=== PATIENT | male | born 1950 | race Caucasian/White ===

== ENCOUNTER 2017-10-02 14:14 | Inpatient (IN) | payer MEDICARE ==
[~2017-10-02] VITALS: Ht 167.6 cm; Wt 103.9 kg
--- NOTE | ~2017-10-02 | EC ---
PATIENT:RIK TREVINO DATE OF SERVICE: 10/03/17 SEX: M MEDICAL RECORD: [id number] DATE OF : 46 LOCATION:D.M2 D.212 AGE OF PATIENT: 67 ADMISSION DATE: 10/03/17 REFERRING PHYSICIAN: INTERPRETING PHYSICIAN: COLEEN RENTERIA MD ECHOCARDIOGRAM REPORT ECHO CHARGES 4 ECHO COMPLETE CLINICAL DIAGNOSIS: CP ECHOCARDIOGRAPHIC MEASUREMENTS (adult normal given) AC root (d.<3.7cm) 3.1 cm LV Septum d (<1.2 cm> 1.5 cm Valve Excursion 2.0 cm LV Septum (systole) 1.7 cm Left Atria (s.<4.0cm> 3.8 cm LVPW d(<1.2cm) 1.3 cm RV (d.<2.3cm) 2.3 cm LVPW (sytole) 1.9 cm LV diastole(<5.6CM) 5.1 cm MV E-F(>70mm/sec) cm LV systole 3.3 cm LVOT Diameter 2.0 cm MV exc.(>10mm) cm Est.ejection fraction (50-75%) % Pericardial Effusion N DOPPLER: LVIT cm/sec A 90.0 cm/sec E 136 cm/sec LA cm/sec RVSP 24.0 mmHg LVOT 121 cm/sec AOP1/2T m/s Asc. Ao 178 cm/sec RVOT 97.0 cm/sec RA cm/sec PA 117 cm/sec AV Gradient Peak 13.0 mmHg AV Mean 7.2 mmHg AV Area 2.2 cm MV Gradient Peak 7.5 mmHg MV Mean 3.1 mmHg MV Area cm COMMENTS: Metal Bumper: Jeff [place] Crusher Loader Operator: 4 Dr. Renteria TAPE# PACS DATE OF SERVICE: 10/03/2017 PROCEDURE: Transthoracic echocardiogram. FINDINGS: 1. The left ventricle is difficult to visualize, but appears to have evidence of mild left ventricular hypertrophy with inflow characteristics that are normal. Ejection fraction of 55% to 60% with no obvious regional wall motion abnormalities. 2. The left atrium is normal size, normal function. ECHOCARDIOGRAM REPORT [id number] RIK TREVINO 3. The aortic valve is grossly normal. 4. The tricuspid valve is grossly normal with normal RVSP. 5. The mitral valve is structurally normal with no obvious regurgitation. 6. The pulmonic valve is not well visualized, appears to be normal. 7. The right atrium and right ventricle are structurally and functionally normal. CONCLUSIONS: The patient has evidence of mild left ventricular hypertrophy, but otherwise normal echocardiogram. TRANSINT:[id number] Voice Confirmation ID: [id number] DOCUMENT ID: [id number] 10/07/2017 Edited to correct date of service, dm. COLEEN RENTERIA MD at 1251 CC: [id number] DICTATION DATE: 10/04/17 0935 QA TEST LEAD: 10/04/17 1305 ADM IN [facility] [address] [place] [address]
--- NOTE | ~2017-10-02 | HEMODYNAMI ---
PATIENT:RIK TREVINO MEDICAL RECORD: [id number] : 46 LOCATION:[address] ADMISSION DATE: 10/02/17 Generatedon:10/03/201710:09 Patient name: RIK TREVINO Patient #: [id number] SSN: : 1950 Date of study: 10/03/2017 Page: Of Hemodynamic Procedure Report Patient Data Patient Demographics Procedure consent was obtained First Name: RIK Gender: Male Last Name: BELINDA : 1950 [facility] Initial: REECE Age: 67 year(s) Patient #: [id number] Race: Unknown Additional ID: [id number] Contact details Address: [address] [place] [address] State: [place] City: [facility] Zip code: [address] Admission Admission Data Admission Date: 10/02/2017 Admission Time: 18:40 Room #: 212 Procedure Procedure Types Cath Procedure Diagnostic Procedure [facility] w/Coronaries Procedure Description Procedure Date Procedure Date: 10/03/2017 Procedure Start Time: 9:38 Procedure Staff Name Function Kanwal Mariam RT Monitor John Reid RN Nurse Alexis Garrett RT Scrub Julián Renteria MD Performing Physician Anna Hernandez RN Nurse Hemodynamics Rest Pre Cath Intra NCS Post Cath Procedure Log Time Note 9:50:24 John Reid RN sent for patient. Start room use. 9:50:25 Time tracking: Call back 9:50:36 Plan of Care:Hemodynamics will remain stable., Cardiac rhythm will remain stable., Comfort level will be maintained., Respiratory function will remain adequate., Patient/ family verbilizes understanding of procedure., Procedure tolerated without complication., Recovers from procedure without complications.. 9:52:09 Use device set Femoral Dx 9:52:11 Bag Decanter (2002) opened to sterile field. 9:52:11 ACIST Syringe (07138) opened to sterile field. 9:52:12 Medline Cath Pack ([id number]) opened to sterile field. 9:52:13 SHEATH 5FR [place] (WJU163) opened to sterile field. 9:52:14 ACIST Hand Control (27492) opened to sterile field. 9:52:15 DIAGNOSTIC Multipack 5Fr catheter set (PM2127) opened to sterile field. 9:52:15 ACIST Manifold (77869) opened to sterile field. 9:52:16 Tegaderm 4 x 4 (1626W) opened to sterile field. 9:52:19 MICROPUNCTURE 4FR [place] (O75450) opened to sterile field. 10:01:37 Warm blankets applied, and eduard hugger turned on for patient comfort. 10:01:37 Patient received from PCU to CCL 1 Alert and oriented. Tansferred to table in Supine position. 10:01:38 Correct patient and procedure confirmed by team. 10:01:39 Signed procedure consent form obtained from patient. 10:01:40 ECG and BP/O2 sat monitors applied to patient. 10:01:41 Full Disclosure recording started 10:04:02 PATIENT ARRIVED TO SENIOR CYTOGENETIC TECHNOLOGIST WITH GASH ON HIS HEAD. SAID HE FELL IN SHOWER THIS AM. HE SAYS HE TOLD HIS NURSE. JOHN RN NOTIFIED ESTHER RN ON THE FLOOR. JOHN RN NOTIFIED DR. RENTERIA. PROCEDURE ON HOLD UNTIL GET CT OF HEAD. 10:08:18 ANNA MORENO CLEANED WOUND. 10:08:32 Patient transfered to PCU with Bed. 10:09:12 Full Disclosure recording stopped Device Usage Item Name Manufacture Quantity Catalog Hospital Part Current Minimal Lot# / Number Charge Number Stock Stock Serial# Code ACIST Syringe Acist 1 71696 851640 619848 080860 20 (51782) Medical Systems Inc Bag Decanter Microtek 1 2001S 175163 09731 134437 5 (2001S) Medical Inc. Medline Cath Cardinal 1 [id number] 738173 00394 091030 5 Pack Health ([id number]) SHEATH 5FR Terumo 1 NTK209 738449 839778 411832 40 [place] (LGW533) ACIST Hand Acist 1 88180 492983 119915 896399 5 Control Medical (48551) Systems Inc ACIST Acist 1 30955 767543 890962 446623 5 Manifold Medical (86138) Systems Inc DIAGNOSTIC Cardinal 1 XY4693 526804 25867 744787 30 Multipack 5Fr Health catheter set (MF8682) Tegaderm 4 x 3M 1 1626W 818249 970874 945058 5 4 (1626W) MICROPUNCTURE [facility] 1 [id number] 950505 635019 970276 5 4FR [place] (Z13208) Signature Audit [place] Stage Time Signature Unsigned Intra-Procedure 10/03/2017 Kanwal 10:09:57 AM Counts RT(R) Signatures Monitor : Kanwal Signature : Counts RT Date : Time : [address] [place] [address]
--- NOTE | ~2017-10-02 | HEMODYNAMI ---
PATIENT:RIK TREVINO MEDICAL RECORD: [id number] : 46 [facility] [id number] ADMISSION DATE: 10/03/17 Generatedon:10/09/20178:59 Patient name: RIK TREVINO Patient #: [id number] SSN: : 1950 Date of study: 10/09/2017 Page: Of Hemodynamic Procedure Report Patient Data Patient Demographics Procedure consent was obtained First Name: RIK Gender: Male Last Name: BELINDA : 1950 [facility] Initial: REECE Age: 67 year(s) Patient #: [id number] Race: Unknown Additional ID: [id number] Contact details Address: [address] [place] [address] State: [place] City: [facility] Zip code: [address] Past Medical History Allergies: No known allergies Admission Admission Data Admission Date: 10/03/2017 Admission Time: 15:20 Room #: D.2121 Height (in.): 65.75 BSA: 2.11 (m2) Height (cm.): 167 BMI: 36.93 (kg/m2) Weight (lbs.): 227.08 Weight (kg.): 103 Lab Results Lab Result Date: 10/03/2017 Lab Result Time: 9:30 Biochemistry Name Units Result Min Max BUN mg/dl 21 --(----)-* 7 18 Creatinine mg/dl 0.9 --(-*--)-- 0.6 1.3 CBC Name Units Result Min Max Hematocrit % 43.4 --(*---)-- 42 54 Hemoglobin g/dl 13.4 -*(----)-- 13.5 17.5 Procedure Procedure Types Cath Procedure PCI Procedure Coronary Stent Coronary Stent Initial x2 Miscellaneous Procedures Moderate Sedation up to 30 minutes Procedure Description Procedure Date Procedure Date: 10/09/2017 Procedure Start Time: 8:30 Procedure End Time: 8:54 Procedure Staff Name Function Julián Alegre MD Performing Physician Lima Darden RT Monitor Madelin Singh RT Scrub John Reid RN Nurse Procedure Data Cath Procedure Fluoroscopy Diagnostic fluoroscopy Total fluoroscopy Time: 4.9 time: 4.9 min min Diagnostic fluoroscopy Total fluoroscopy dose: dose: 1014 mGy 1014 mGy Contrast Material Contrast Material Type Amount (ml) Isovue 300 90 Entry Location Entry Primary Successful Side Size Upsize Upsize Entry Closure Succes sful Closure Location (Fr) 1 (Fr) 2 (Fr) Remarks Device Remarks Femoral Right 6 Fr Exoseal artery Short Estimated blood loss: 5 ml Procedure Complications No complications Procedure Medications Medication Administration Route Dosage Oxygen NC 2 l/min Lidocaine 2% added to field 20 Heparin Flush Bag added to field 2 bags (1000units/500ml NS) 0.9% NaCl I.V. 100 ml/hr Versed I.V. 1 mg Fentanyl I.V. 25 mcg Angiomax (bolus) I.V. 16 ml Angiomax Drip I.V. drip 36.1 ml/hr (250mg/50ml NS) (Standard) Nitroglycerin IC/IA I.C. 150 mcg Angiomax Drip 36.1 ml/hr (250mg/50ml NS) (Standard) Hemodynamics Rest BSA: 2.11 (m2) HGB: 13.4 (g/dl) O2 Consumption: Estimated: 252.18 (ml/min) O2 Co nsumption indexed: Estimated:119.52 (ml/min/m) Heart Rate: 80 (bpm) Snapshots Pre Cath Intra NCS Post Cath Vital Signs Time Heart Resp SPO2 etCO2 NIBP (mmHg) Rhythm Pain Sedation Rate (ipm) (%) (mmHg) Status Level (bpm) 8:17:52 83 13 94 47.9 169/87(130) NSR 0 (11) 10(A) , No pain 8:22:18 77 15 96 37.2 171/87(144) NSR 0 (11) 10(A) , No pain 8:26:45 76 15 94 0 161/74(123) NSR 0 (11) 10(A) , No pain 8:31:16 71 14 94 0.7 147/57(121) NSR 0 (11) 9(A) , No pain 8:35:36 78 15 94 0 154/79(128) NSR 0 (11) 9(A) , No pain 8:39:54 79 15 93 0 154/82(116) NSR 0 (11) 9(A) , No pain 8:44:18 84 14 94 0 173/82(134) NSR 0 (11) 9(A) , No pain 8:48:32 83 15 93 0 150/80(130) NSR 0 (11) 10(A) , No pain 8:52:54 84 15 96 28.1 164/88(127) NSR 0 (11) 10(A) , No pain Medications Time Medication Route Dose Verified Delivered Reason Notes Effectiveness by by 8:17:13 Oxygen NC 2 Julián Buffie used for l/min Codey Reid RN procedure 8:17:23 Lidocaine 2% added to field 20ml Julián Julián for local vial Codey Alegre MD anesthetic 8:17:29 Heparin Flush added to field 2 Julián Julián used for Bag bags Codey Alegre MD procedure (1000units/500ml NS) 8:17:38 0.9% NaCl I.V. 100 Julián Buffie Per physicia n ml/hr Codey Reid RN, MD 8:26:01 Versed I.V. 1 mg Julián Buffie for sedation Codey Reid RN, MD 8:26:07 Fentanyl I.V. 25 Julián Buffie for sedation mcg Codey Reid RN, MD 8:36:26 Angiomax (bolus) I.V. 16 ml Julián Buffie for Codey Reid RN anticoagulation 8:38:38 Angiomax Drip I.V. drip 36.1 Julián Buffie for (250mg/50ml NS) ml/hr Codey Reid RN anticoagulation (Standard) 8:45:08 Nitroglycerin I.C. 150 Julián Julián for IC/IA mcg Codey Alegre MD vasodilation 8:56:16 Angiomax Drip I.V. 36.1 Julián Julián for (250mg/50ml NS) drip-discontinued ml/hr Codey Alegre MD anticoagulation (Standard) Procedure Log Time Note 8:05:48 Patient Height : 65.75 inches 8:06:01 Patient Weight : 227.08 lbs 8:06:47 Diagnostic Cath status Elective 8:06:49 Lima NEGRON(R) sent for patient. Start room use. 8:06:50 Time tracking: Regular hours 8:06:57 Plan of Care:Hemodynamics will remain stable., Cardiac rhythm will remain stable., Comfort level will be maintained., Respiratory function will remain adequate., Patient/ family verbilizes understanding of procedure., Procedure tolerated without complication., Recovers from procedure without complications.. 8:09:11 Patient received from Med II to CCL 2 Alert and oriented. Tansferred to table in Supine position. 8:09:12 Warm blankets applied, and eduard hugger turned on for patient comfort. 8:09:13 Correct patient and procedure confirmed by team. 8:09:14 Signed procedure consent form obtained from patient. 8:09:16 ECG and BP/O2 sat monitors applied to patient. 8:09:30 H&P Date Dictated: 10/05/2017 Within 30 days and on chart., H&P Addendum completed by physician on day of procedure. (MUST COMPLETE FOR ALL OUTPATIENTS). 8:09:34 Family in waiting room. 8:09:36 Patient NPO since Midnight. 8:16:32 Vital chart was started 8:16:34 Baseline sample Acquired. 8:16:35 Full Disclosure recording started 8:16:36 Pre-procedure instructions explained to patient. 8:16:37 Pre-op teaching completed and patient verbalized understanding. 8:17:13 Oxygen 2 l/min NC was administered by John Reid RN; used for procedure; 8:17:23 Lidocaine 2% 20ml vial added to field was administered by Julián Alegre MD; for local anesthetic; 8:17:29 Heparin Flush Bag (1000units/500ml NS) 2 bags added to field was administered by Julián Alegre MD; used for procedure; 8:17:38 0.9% NaCl 100 ml/hr I.V. was administered by John Reid RN; Per physician; 8:18:44 Is the patient allergic to Iodine/contrast media? No. 8:18:46 Was the patient premedicated? No 8:18:47 Is patient on blood thinner?Yes 8:18:50 ACC The patient was administered the following blood thiners within the last 24 hours: ACCPlavix 8:19:54 Patient diabetic? No. 8:19:56 Previous problem with sedation/anesthesia? No ? 8:19:58 Snore? No 8:19:59 Sleep apnea? No 8:20:01 Deviated septum? No 8:20:02 Opens mouth fully? Yes 8:20:03 Sticks out tongue? Yes 8:20:05 Airway obstruction? No ? 8:20:08 Dentures? No ? 8:20:16 Pre procedure: right dorsailis pedis pulse 1+ Palpable, but thready & weak; easily obliterated 8:20:18 Pre procedure: left dorsailis pedis pulse 1+ Palpable, but thready & weak; easily obliterated 8:20:20 Patient pain scale 0/10 ?. 8:20:29 IV patent on arrival in right antecubital with 0.9% NaCl at [facility]. 8:20:35 Lab results completed and on chart. 8:20:39 Right groin area was prepped with chlora-prep and draped in sterile fashion 8:20:40 Alarms reviewed by R. N. 8:20:41 Sharps counted by scrub and verified by R.N. 8:20:42 Physician arrived 8:20:42 Final Timeout: patient, procedure, and site verified with staff and physician. All members of the team are in agreement. 8:20:43 --------ALL STOP TIME OUT------ 8:20:46 Right groin site verified by team. 8:20:49 Physical assessment completed. ASA score P 2 - A patient with mild systemic disease as per Julián Alegre MD. 8:20:52 Sedation plan: IV Moderate Sedation Medication:Versed, Fentanyl 8:21:00 Use device set Radial Dx or PCI 8:21:02 ACIST Syringe (08606) opened to sterile field. 8:21:03 Medline Cath Pack (RECN25856) opened to sterile field. 8:21:03 Bag Decanter (2002) opened to sterile field. 8:21:04 DIAGNOSTIC WIRE .035 260cm J wire (791860) opened to sterile field. 8:21:05 ACIST Hand Control (78252) opened to sterile field. 8:21:06 ACIST Manifold (43803) opened to sterile field. 8:21:07 Tegaderm 4 x 4 (1626W) opened to sterile field. 8:23:38 SHEATH 6FR [place]ansen (XGG566) opened to sterile field. 8:26:01 Versed 1 mg I.V. was administered by John Reid RN; for sedation; 8:26:07 Fentanyl 25 mcg I.V. was administered by John Reid RN; for sedation; 8:30:52 Procedure started. 8:30:57 Local anesthetic to right femoral artery with Lidocaine 2% by Julián Alegre MD.INITIAL ACCESS ONLY 8:30:58 Access obtained with 4Fr micropunture. 8:32:53 A 6 Fr Short sheath was inserted into the Right Femoral artery 8:33:18 GUIDE 6FR XBLAD 4.0 catheter (47209223) opened to sterile field. 8:33:36 BMW 190cm Bledsoe 2 J wire (7865227H) opened to sterile field. 8:33:37 INFLATOR Merit BasixCompak (JJ6344) opened to sterile field. 8:34:26 6 Fr xblad 4 guide catheter was inserted over the wire 8:35:05 LCA angiography performed. 8:35:18 COPILOT Valve Control (4185359) opened to sterile field. 8:36:26 Angiomax (bolus) 16 ml I.V. was administered by John Reid RN; for anticoagulation; 8:37:31 bmw wire advanced. 8:38:24 Wire advanced across lesion. 8:38:38 Angiomax Drip (250mg/50ml NS) (Standard) 36.1 ml/hr I.V. drip was administered by John Reid RN; for anticoagulation; 8:41:01 Inflation number: 1 A EUPHORA 2.0 x 20 Balloon ([id number]) was prepped and advanced across the Prox LAD, then inflated to 10 [place] for 0:10 (min:sec). 8:41:40 Inflation number: 2 The EUPHORA 2.0 x 20 Balloon ([id number]) was reinflated across the Prox LAD, to 10 [place] for 0:10 (min:sec). 8:42:27 Balloon removed over the wire. 8:45:08 Nitroglycerin IC/IA 150 mcg I.C. was administered by Julián Alegre MD; for vasodilation; 8:46:16 Inflation Number: 3 A XIOMARA RX 2.5 x 30 stent ([id number]) was prepped and advanced across the Prox LAD. The stent was deployed at 14 [place] for 0:10 (min:sec). 8:47:58 Stent catheter was removed intact over wire. 8:48:04 Wire redirected to LCX. 8:51:07 Inflation Number: 1 A XIOMARA RX 2.5 x 15 stent ([id number]) was prepped and advanced across the Prox CX. The stent was deployed at 18 [place] for 0:10 (min:sec). 8:52:12 Stent catheter was removed intact over wire. 8:52:12 Wire removed. 8:52:13 Guide catheter removed. 8:52:25 EXOSEAL 6Fr (EX600) opened to sterile field. 8:52:37 Sheath removed intact; hemostasis achieved with Exoseal to the Right Femoral artery. 8:52:38 Procedure ended.(Physican Out) 8:53:12 Fluoroscopy time 04.90 minutes. 8:53:35 Flurop Dose total: 1014 8:53:35 Fluoroscopy dose: 1014 mGy 8:53:39 Contrast amount:Isovue 300 90ml. 8:53:40 Sharps counted by scrub and verified by R.N. 8:53:44 Insertion/operative site no bleeding no hematoma. 8:53:47 Post-op/insertion site Right Femoral artery dressed using a 4 x 4 and Tegaderm. 8:53:50 Post right femoral artery:stable 8:53:51 Post Procedure Pulses reassessed and unchanged 8:53:55 Post procedure rhythm: unchanged. 8:53:58 Estimated blood loss: 5 ml 8:54:00 Post procedure instruction explained to patient.Patient verbalizes understanding. 8:54:00 Patient needs reinforcement of post procedure teaching. 8:54:24 Procedure type changed to Cath procedure, PCI procedure, Coronary Stent, Coronary Stent Initial x2, Miscellaneous Procedures, Moderate Sedation up to 30 minutes 8:54:25 Procedure and supply charges have been captured, reviewed, submitted and are correct. 8:54:30 Procedure Complication : No complications 8:54:36 Vital chart was stopped 8:54:48 See physician's report for complete and final results. 8:54:51 Report given to [facility]. 8:54:54 Patient transfered to [facility] with Stretcher. 8:54:56 Procedure ended. 8:54:56 Full Disclosure recording stopped 8:55:03 ACC-PCI Only Patient was given prescriptions, or instructed by Julián Alegre MD to start/continue the following medications upon discharge: Plavix 8:55:05 End room use (Document Last) 8:56:16 Angiomax Drip (250mg/50ml NS) (Standard) 36.1 ml/hr I.V. drip-discontinued was administered by Julián Alegre MD; for anticoagulation; Intervention Summary Intervention Notes Time ActionType Lesion and Equipment Used Action# Pressure Duration Attributes 8:41:01 Inflate Prox LAD EUPHORA 2.0 x 1 10 00:10 balloon 20 Balloon ([id number]) 8:41:40 Reinflate Prox LAD EUPHORA 2.0 x 2 10 00:10 balloon 20 Balloon ([id number]) 8:46:16 Place stent Prox LAD XIOMARA RX 2.5 x 3 14 00:10 30 stent ([id number]) 8:51:07 Place stent Prox CX XIOMARA RX 2.5 x 1 18 00:10 15 stent ([id number]) Device Usage Item Name Manufacture Quantity Catalog Hospital Part [facility] Lot# / Number Charge Number Stock Stock Serial# Code ACIST Syringe Acist 1 36923 065176 221913 156858 20 (59419) Medical Systems Inc Medline Cath Cardinal 1 [id number] 466275 11540 344689 5 Pack Health ([id number]) Bag Decanter Microtek 1 2001S 448509 35687 997313 5 (2001S) Medical Inc. DIAGNOSTIC St Shadi 1 920994 247079 485936 690818 30 WIRE .035 260cm J wire (700526) ACIST Hand Acist 1 62256 022850 212679 955288 5 Control Medical (84704) Systems Inc ACIST Manifold Acist 1 00239 388440 189581 658091 5 (81485) Medical Systems Inc Tegaderm 4 x 4 3M 1 1626W 805955 770425 351455 5 (1626W) SHEATH 6FR Terumo 1 NOQ691 464902 578485 293307 40 Jansen (FVP772) GUIDE 6FR Cardinal 1 [id number] 581405 533274 214920 3 XBLAD 4.0 Health catheter (10148359) BMW 190cm Garcia 1 [id number] 238165 52905 275693 5 Bledsoe 2 J Vascular wire (7728289M) INFLATOR Merit Merit 1 LV7515 838380 669808 335262 15 [facility] Medical (VX7619) COPILOT Valve Garcia 1 3133615 420171 979579 342903 5 Control Vascular (9761330) EUPHORA 2.0 x Medtronic 1 [id number] 332729 475771 589191 5 [id number] 20 Balloon ([id number]) XIOMARA RX 2.5 x Medtronic 1 [id number] 215109 8834593 116635 5 [id number] 30 stent ([id number]) XIOMARA RX 2.5 x Medtronic 1 [id number] 593250 5931642 599378 5 [id number] 15 stent ([id number]) EXOSEAL 6Fr Cardinal 1 EX600 610982 252331 569320 10 (EX600) Health Signature Audit [place] Stage Time Signature Unsigned Intra-Procedure 10/09/2017 Lima Darden 8:59:27 AM RT(R) Signatures Monitor : Lima Darden RT Signature : Date : Time : [place] [id number] [place] [address]
--- NOTE | ~2017-10-02 | HEMODYNAMI ---
PATIENT:RIK TREVINO MEDICAL RECORD: [id number] : 46 LOCATION:[address] [facility]# [id number] ADMISSION DATE: 10/03/17 Generatedon:10/05/201710:45 Patient name: RIK TREVINO Patient #: [id number] SSN: : 1950 Date of study: 10/05/2017 Page: Of Hemodynamic Procedure Report Patient Data Patient Demographics Procedure consent was obtained First Name: RIK Gender: Male Last Name: BELINDA : 1950 [facility] Initial: REECE Age: 67 year(s) Patient #: [id number] Race: Unknown Additional ID: [id number] Contact details Address: [address] [place] [address] State: [place] City: [facility] Zip code: [address] Past Medical History Allergies: No known allergies Admission Admission Data Admission Date: 10/03/2017 Admission Time: 15:20 Room #: D2121 Lab Results Lab Result Date: 10/03/2017 Lab Result Time: 9:30 Biochemistry Name Units Result Min Max BUN mg/dl 21 --(----)-* 7 18 Creatinine mg/dl 0.9 --(-*--)-- 0.6 1.3 CBC Name Units Result Min Max Hematocrit % 43.4 --(*---)-- 42 54 Hemoglobin g/dl 13.4 -*(----)-- 13.5 17.5 Procedure Procedure Types Cath Procedure Diagnostic Procedure LHC LHC w/Coronaries Peripheral Cath Diagnostic Procedure Cath Peripheral Four Vessel Arteriogram Procedure Description Procedure Date Procedure Date: 10/05/2017 Procedure Start Time: 10:24 Procedure End Time: 10:42 Procedure Staff Name Function Julián Alegre MD Performing Physician Alexis Garrett RT Monitor Kanwal Becerra RT Scrub Lux Mcginnis RN Nurse Procedure Data Cath Procedure Fluoroscopy Diagnostic fluoroscopy Total fluoroscopy Time: 2.4 time: 2.4 min min Diagnostic fluoroscopy Total fluoroscopy dose: 706 dose: 706 mGy mGy Contrast Material Contrast Material Type Amount (ml) Isovue 300 84 Entry Location Entry Primary Successful Side Size Upsize Upsize Entry Closure Succes sful Closure Location (Fr) 1 (Fr) 2 (Fr) Remarks Device Remarks Femoral Right 5 Fr Exoseal artery Estimated blood loss: 5 ml Diagnostic catheters Device Type Used For End Catheter Placement MULTIPACK JL 4.0 5Fr Procedure catheter MULTIPACK 3DRC 5Fr Procedure catheter MULTIPACK Pigtail 5 Fr Procedure catheter Procedure Complications No complications Procedure Medications Medication Administration Route Dosage 0.9% NaCl I.V. 100 ml/hr Oxygen NC 2 l/min Heparin Flush Bag added to field 2 bags (1000units/500ml NS) Lidocaine 2% added to field 20 Versed I.V. 2 mg Fentanyl I.V. 25 mcg Hemodynamics Rest HGB: 13.4 (g/dl) Heart Rate: 59 (bpm) Pressure Samples Time Site Value (mmHg) Purpose Heart Use Rate(bpm) 10:37 LV 144/-5,20 EDP 75 Gradients Valve Time Site Site Mean SEP/DFP Peak To Heart Use 1 2 (mmHg) (sec/min) Peak Rate (mmHg) (bpm) Aortic 10:37 LV AO 74 Snapshots Pre Cath Intra NCS Post Cath Vital Signs Time Heart Resp SPO2 etCO2 NIBP (mmHg) Rhythm Pain Sedation Rate (ipm) (%) (mmHg) Status Level (bpm) 10:02:09 72 14 95 52.4 141/67(114) NSR 0 (11) 10(A) , No pain 10:06:57 70 13 97 20.5 141/74(112) NSR 0 (11) 10(A) , No pain 10:11:44 68 14 97 17.4 137/72(104) NSR 0 (11) 10(A) , No pain 10:16:29 69 15 97 42.5 131/62(97) NSR 0 (11) 10(A) , No pain 10:21:12 67 14 96 27.3 132/65(107) NSR 0 (11) 10(A) , No pain 10:25:56 70 15 97 0 127/64(100) NSR 0 (11) 9(A) , No pain 10:30:43 76 14 94 0 133/63(105) NSR 0 (11) 9(A) , No pain 10:35:32 76 15 94 0 139/58(105) NSR 0 (11) 9(A) , No pain 10:40:17 74 18 96 0 119/59(94) NSR 0 (11) 9(A) , No pain Medications Time Medication Route Dose Verified Delivered Reason Notes Effe ctiveness by by 10:04:52 0.9% NaCl I.V. 100 Lux Lux Per ml/hr Ras Mcginnis physician RN RN 10:05:08 Oxygen NC 2 Lux Lux Per l/min Ras Mcginnis physician RN RN 10:05:19 Heparin Flush added 2 Lux Lux used for Bag to bags Lorigan Lorigan procedure (1000units/500ml field RN RN NS) 10:05:33 Lidocaine 2% added 20ml Lux Lux for local to vial Lorigan Lorigan anesthetic field RN RN 10:23:21 Versed I.V. 2 mg Lux Lux for Lorigan Lorigan sedation RN RN 10:23:35 Fentanyl I.V. 25 Lux Lux for mcg Lorigan Lorigan sedation RN agricultural research engineer Log Time Note 9:37:30 Alexis Garrett RT(R) sent for patient. Start room use. 9:37:31 Time tracking: Regular hours 9:37:35 Plan of Care:Hemodynamics will remain stable., Cardiac rhythm will remain stable., Comfort level will be maintained., Respiratory function will remain adequate., Patient/ family verbilizes understanding of procedure., Procedure tolerated without complication., Recovers from procedure without complications.. 9:55:51 Patient received from PCU to CCL 1 Alert and oriented. Tansferred to table in Supine position. 9:55:52 Warm blankets applied, and eduard hugger turned on for patient comfort. 9:55:52 Correct patient and procedure confirmed by team. 9:55:53 Signed procedure consent form obtained from patient. 9:55:54 ECG and BP/O2 sat monitors applied to patient. 9:55:56 Full Disclosure recording started 10:01:09 Vital chart was started 10:01:33 Procedure type changed to Cath procedure, Diagnostic procedure, LHC, LHC w/Coronaries, Peripheral Cath Diagnostic Procedure, Cath Peripheral, Four Vessel Arteriogram 10:04:52 0.9% NaCl 100 ml/hr I.V. was administered by Lux Mcginnis RN; Per physician; 10:05:08 Oxygen 2 l/min NC was administered by Lux Mcginnis RN; Per physician; 10:05:19 Heparin Flush Bag (1000units/500ml NS) 2 bags added to field was administered by Lux Mcginnis RN; used for procedure; 10:05:33 Lidocaine 2% 20ml vial added to field was administered by Lux Mcginnis RN; for local anesthetic; 10:11:34 Baseline sample Acquired. 10:11:42 Rhythm: sinus rhythm 10:12:02 H&P Date Dictated: 10/02/2017 Within 30 days and on chart.. 10:12:03 Pre-procedure instructions explained to patient. 10:12:04 Pre-op teaching completed and patient verbalized understanding. 10:12:05 Family unavailable. 10:12:07 Patient NPO since Midnight. 10:12:11 Patient allergic to No known allergies 10:12:15 Is the patient allergic to Iodine/contrast media? No. 10:12:18 Is patient on blood thinner?Yes 10:12:20 ACC The patient was administered the following blood thiners within the last 24 hours: ACCPlavix 10:13:00 Patient diabetic? No. 10:13:05 Previous problem with sedation/anesthesia? No ? 10:13:06 Snore? No 10:13:07 Sleep apnea? No 10:13:08 Deviated septum? No 10:13:09 Opens mouth fully? Yes 10:13:09 Sticks out tongue? Yes 10:13:15 Airway obstruction? No ? 10:13:18 Dentures? Yes out 10:13:21 Pre procedure: right dorsailis pedis pulse 1+ Palpable, but thready & weak; easily obliterated 10:13:22 Patient pain scale 0/10 ?. 10:13:27 IV patent on arrival in right antecubital with 0.9% NaCl at [facility]. 10:14:21 Lab Result : BUN 21 mg/dl 10:14:21 Lab Result : Hemoglobin 13.4 g/dl 10:14:21 Lab Result : Creatinine 0.9 mg/dl 10:14:21 Lab Result : Hematocrit 43.4 % 10:14:23 Lab results completed and on chart. 10:14:26 Right groin area was prepped with chlora-prep and draped in sterile fashion 10:14:27 Alarms reviewed by R. N. 10:14:28 Sharps counted by scrub and verified by R.N. 10:14:31 Use device set Femoral Dx 10:14:33 ACIST Hand Control (60557) opened to sterile field. 10:14:34 ACIST Manifold (98861) opened to sterile field. 10:14:35 Tegaderm 4 x 4 (1626W) opened to sterile field. 10:14:37 ACIST Syringe (37300) opened to sterile field. 10:14:37 Bag Decanter (2002S) opened to sterile field. 10:14:38 Medline Cath Pack ([id number]) opened to sterile field. 10:14:44 DIAGNOSTIC WIRE .035 260cm J wire (958088) opened to sterile field. 10:14:44 SHEATH 5FR [place] (EHL763) opened to sterile field. 10:14:46 MICROPUNCTURE 4FR Cook (P13954) opened to sterile field. 10:14:48 DIAGNOSTIC Multipack 5Fr catheter set ([id number]) opened to sterile field. 10:15:13 Zero performed for pressure channel P1 10:17:45 Physician arrived 10:17:45 --------ALL STOP TIME OUT------ 10:17:46 Final Timeout: patient, procedure, and site verified with staff and physician. All members of the team are in agreement. 10:17:47 Right groin site verified by team. 10:17:50 Physical assessment completed. ASA score P 2 - A patient with mild systemic disease as per Julián Alegre MD. 10:17:57 Sedation plan: IV Moderate Sedation Medication:Versed, Fentanyl 10:23:21 Versed 2 mg I.V. was administered by Lux Mcginnis RN; for sedation; 10:23:35 Fentanyl 25 mcg I.V. was administered by Lux Mcginnis RN; for sedation; 10:24:14 Procedure started. 10:24:17 Local anesthetic to right femoral artery with Lidocaine 2% by Julián Alegre MD.INITIAL ACCESS ONLY 10:27:10 A MULTIPACK JL 4.0 5Fr catheter was advanced over the wire and used for Procedure. 10:27:13 Access obtained with 4Fr micropunture. 10:27:45 A 5 Fr sheath was inserted into the Right Femoral artery 10:28:45 LCA angiography performed. 10:31:29 Catheter exchanged over wire. 10:32:43 A MULTIPACK 3DRC 5Fr catheter was advanced over the wire and used for Procedure. 10:32:52 RCA angiography performed. 10:33:22 Right carotid angiography performed. 10:33:30 Left carotid angiography performed. 10:34:36 Left carotid angiography performed. 10:34:37 Right carotid angiography performed. 10:35:20 EXOSEAL 5Fr (EX500) opened to sterile field. 10:35:25 ECRON angiography performed. 10:35:42 Catheter exchanged over wire. 10:35:47 A MULTIPACK Pigtail 5 Fr catheter was advanced over the wire and used for Procedure. 10:36:35 LV gram done using COLE 10:36:39 Injector settings: Ml/sec: 12, Volume: 8, 10:36:40 LV hemodynamics recorded. 10:37:41 EF : 60 % Mild inferior base with hyperkinesis. 10:37:44 Catheter removed. 10:39:46 Sheath removed intact; hemostasis achieved with Exoseal to the Right Femoral artery. 10:39:52 Procedure ended.(Physican Out) 10:39:56 Fluoroscopy time 02.40 minutes. 10:40:04 Fluoroscopy dose: 706 mGy 10:40:04 Flurop Dose total: 706 10:40:09 Contrast amount:Isovue 300 84ml. 10:40:10 Sharps counted by scrub and verified by R.N. 10:40:11 Insertion/operative site no bleeding no hematoma. 10:40:15 Post-op/insertion site Right Femoral artery dressed using a 4 x 4 and Tegaderm. 10:40:19 Post right femoral artery:stable, soft, clean and dry 10:40:20 Post Procedure Pulses reassessed and unchanged 10:40:24 Post-procedure physical assessment completed. ASA score P 2 - A patient with mild systemic disease as per Julián Alegre MD. 10:40:26 Post procedure rhythm: unchanged. 10:40:29 Estimated blood loss: 5 ml 10:40:30 Post procedure instruction explained to patient.Patient verbalizes understanding. 10:40:31 Patient needs reinforcement of post procedure teaching. 10:42:11 Procedure and supply charges have been captured, reviewed, submitted and are correct. 10:42:13 Procedure Complication : No complications 10:42:15 Vital chart was stopped 10:42:16 See physician's report for complete and final results. 10:42:18 Report given to PCU. 10:42:21 Patient transfered to PCU with Stretcher. 10:42:23 Procedure ended. 10:42:23 Full Disclosure recording stopped 10:42:29 End room use (Document Last) Device Usage Item Name Manufacture Quantity Catalog Hospital Part Current Minimal Lot# / Number Charge Number Stock Stock Serial# Code ACIST Hand Acist 1 07985 723419 093539 694129 5 Control Medical (51802) Systems Inc ACIST Acist 1 86158 260753 852889 313635 5 Manifold Medical (56287) Systems Inc Tegaderm 4 x 3M 1 1626W 108709 264116 925125 5 4 (1626W) ACIST Syringe Acist 1 36777 262792 555825 126115 20 (52042) Medical Systems Inc Bag Decanter Microtek 1 2002S 932279 85364 619560 5 (2002S) Medical Inc. Medline Cath Cardinal 1 [id number] 320856 02171 301878 5 Pack Health ([id number]) DIAGNOSTIC St Shadi 1 150952 562720 351091 846885 30 WIRE .035 260cm J wire (859842) SHEATH 5FR Terumo 1 OZZ898 245420 481375 763362 40 [place] (QPP463) MICROPUNCTURE Cook Medical 1 O90340 873205 548027 009651 5 4FR Cook (T35074) DIAGNOSTIC Cardinal 1 BC6650 622897 92723 737786 30 Multipack 5Fr Health catheter set (QI7075) MULTIPACK JL Cardinal 1 991360 5 4.0 5Fr Health catheter MULTIPACK Cardinal 1 136169 5 3DRC 5Fr Health catheter MULTIPACK Cardinal 1 785910 5 Pigtail 5 Fr Health catheter EXOSEAL 5Fr Cardinal 1 EX500 066422 861257 668679 10 (EX500) Health Signature Audit [place] Stage Time Signature Unsigned Intra-Procedure 10/05/2017 Alexis Garrett 10:45:41 AM RT(R) Signatures Monitor : Alexis Garrett RT Signature : Date : Time : [address] [place] [address]
[2017-10-02 15:13] LABS: BASOPHILS 0.6 % (0-2); EOSINOPHILS 5.6 % (0-7); HEMATOCRIT 44.5 % (42.0-54.0); HEMOGLOBIN 14.2 g/dL (13.5-17.5); IMMATURE GRANULOCYTES 0.2 % (0-5); LYMPHOCYTES 38.3 % (15-50); MCH 30.7 pg (26.0-34.0); MCHC 31.9 g/dL (31.0-37.0); MCV 96.3 fL (80.0-100.0); MEAN PLATELET VOLUME 9.4 fL (7.4-10.4); MONOCYTES 10.8 % (2-11); NEUTROPHILS 44.5 % (40-80); PLATELET COUNT 264 10x3/uL (130-400); RBC 4.62 10x6/uL (4.20-6.10); RDW 14.5 % (11.5-14.5); WBC 6.6 10x3/uL (4.8-10.8)
[2017-10-02 15:32] LABS: ALBUMIN 3.3 g/dL (3.4-5.0); ALKALINE PHOSPHATASE 67 U/L (46-116); ALT (SGPT) 23 U/L (10-68); BILIRUBIN - TOTAL 0.16 mg/dL (0.2-1.3); CALC OSMOLALITY 287 mosm/kg (275-300); CALCIUM 8.7 mg/dL (8.5-10.1); CARBON DIOXIDE 30.4 mmol/L (21.0-32.0); CHLORIDE - SERUM 106 mmol/L (98-107); CREATININE - SERUM 0.9 mg/dL (0.6-1.3); GLUCOSE 131 mg/dL (74-106); POTASSIUM - SERUM 4.3 mmol/L (3.5-5.1); PROTEIN - SERUM 7.3 g/dL (6.4-8.2); SODIUM 142 mmol/L (136-145); UREA NITROGEN 21 mg/dL (7-18); eGFR NON AFRICAN AMERICAN 89 mL/min (90-120)
[2017-10-02 15:43] LABS: CHOL - HDL RATIO 4.3 ratio (2.3-4.9); CHOLESTEROL, TOTAL 179 mg/dL (0-200); CKMB 2.4 U/L (0.0-3.6); CREATINE KINASE 48 UL (21-232); HDL CHOLESTEROL 42 mg/dL (32-96); LDL CHOLESTEROL 116 mg/dL (0-100); LDL-HDL RATIO 2.8 ratio (1.5-3.5); TRIGLYCERIDE 108 mg/dL (30-200); TROPONIN-I < 0.017 ng/mL (0.000-0.060)
[2017-10-02 19:00] VITALS: BP 135/64
[2017-10-02] MEDS ORDERED: LIPITOR20 MG PO (19:58)
[2017-10-02 21:49] VITALS: BP 135/61; BMI 36.2
[2017-10-02 22:13] LABS: CKMB 1.2 U/L (0.0-3.6); CREATINE KINASE 52 UL (21-232)
[2017-10-02 22:14] LABS: TROPONIN-I < 0.017 ng/mL (0.000-0.060)
[2017-10-03 04:40] VITALS: BP 104/53
[2017-10-03 05:28] LABS: CKMB 1.6 U/L (0.0-3.6); CREATINE KINASE 39 UL (21-232); TROPONIN-I < 0.017 ng/mL (0.000-0.060)
[2017-10-03 09:02] VITALS: BP 103/53
[2017-10-03 10:07] LABS: BASOPHILS 0.2 % (0-2); EOSINOPHILS 1.9 % (0-7); HEMATOCRIT 43.4 % (42.0-54.0); HEMOGLOBIN 13.4 g/dL (13.5-17.5); IMMATURE GRANULOCYTES 0.1 % (0-5); LYMPHOCYTES 14.8 % (15-50); MCH 30.2 pg (26.0-34.0); MCHC 30.9 g/dL (31.0-37.0); MEAN PLATELET VOLUME 9.6 fL (7.4-10.4); PLATELET COUNT 265 10x3/uL (130-400); RBC 4.43 10x6/uL (4.20-6.10); RDW 14.6 % (11.5-14.5)
[2017-10-03 10:09] LABS: WBC 9.9 10x3/uL (4.8-10.8)
[2017-10-03 10:37] LABS: CALC OSMOLALITY 294 mosm/kg (275-300); CALCIUM 8.6 mg/dL (8.5-10.1); CARBON DIOXIDE 33.1 mmol/L (21.0-32.0); CHLORIDE - SERUM 105 mmol/L (98-107); CKMB 1.8 U/L (0.0-3.6); CREATINE KINASE 34 UL (21-232); GLUCOSE 142 mg/dL (74-106); POTASSIUM - SERUM 4.6 mmol/L (3.5-5.1); SODIUM 145 mmol/L (136-145); UREA NITROGEN 24 mg/dL (7-18); eGFR NON AFRICAN AMERICAN 79 mL/min (90-120)
[2017-10-03 10:42] LABS: TROPONIN-I < 0.017 ng/mL (0.000-0.060)
[2017-10-03 11:02] VITALS: Ht 167.6 cm; Wt 103.9 kg
[2017-10-03 11:13] VITALS: BP 100/52
[2017-10-03 17:07] VITALS: BP 117/55
[2017-10-03 19:00] VITALS: BP 113/42
[2017-10-04] VITALS: BP 109/35
[2017-10-04 04:00] VITALS: BP 93/40
[2017-10-04 06:19] LABS: C-REACTIVE PROTEIN 4.7 mg/dL (0.0-0.9); CALC OSMOLALITY 281 mosm/kg (275-300); CALCIUM 8.2 mg/dL (8.5-10.1); CARBON DIOXIDE 33.9 mmol/L (21.0-32.0); CHLORIDE - SERUM 103 mmol/L (98-107); CREATININE - SERUM 0.9 mg/dL (0.6-1.3); GLUCOSE 116 mg/dL (74-106); PRO BNP 47 pg/mL (0-125); SODIUM 139 mmol/L (136-145); UREA NITROGEN 21 mg/dL (7-18); eGFR NON AFRICAN AMERICAN 89 mL/min (90-120)
[2017-10-04 08:21] VITALS: BP 124/72
[2017-10-04 12:06] VITALS: BP 117/43
[2017-10-04 16:12] VITALS: BP 116/49
[2017-10-04 21:26] VITALS: BP 125/36
[2017-10-05 01:03] VITALS: BP 119/56
[2017-10-05 04:54] VITALS: BP 104/92
[2017-10-05 08:01] VITALS: BP 126/48
[2017-10-05 08:15] LABS: BASOPHILS 0.4 % (0-2); EOSINOPHILS 3.5 % (0-7); HEMOGLOBIN 12.9 g/dL (13.5-17.5); IMMATURE GRANULOCYTES 0.2 % (0-5); LYMPHOCYTES 22.7 % (15-50); MCH 30.5 pg (26.0-34.0); MCHC 31.5 g/dL (31.0-37.0); MCV 96.9 fL (80.0-100.0); MEAN PLATELET VOLUME 9.5 fL (7.4-10.4); MONOCYTES 12.9 % (2-11); NEUTROPHILS 60.3 % (40-80); PLATELET COUNT 233 10x3/uL (130-400); RBC 4.23 10x6/uL (4.20-6.10); RDW 14.1 % (11.5-14.5); WBC 8.1 10x3/uL (4.8-10.8)
[2017-10-05 08:26] LABS: CALC OSMOLALITY 282 mosm/kg (275-300); CALCIUM 8.5 mg/dL (8.5-10.1); CARBON DIOXIDE 35.4 mmol/L (21.0-32.0); CHLORIDE - SERUM 101 mmol/L (98-107); CREATININE - SERUM 0.9 mg/dL (0.6-1.3); GLUCOSE 123 mg/dL (74-106); POTASSIUM - SERUM 4.3 mmol/L (3.5-5.1); SODIUM 141 mmol/L (136-145); eGFR NON AFRICAN AMERICAN 89 mL/min (90-120)
[2017-10-05 08:28] LABS: UREA NITROGEN 14 mg/dL (7-18)
[2017-10-05 15:41] VITALS: BP 135/59
[2017-10-05 21:12] VITALS: BP 116/41
[2017-10-06 05:39] VITALS: BP 102/47
[2017-10-06 08:02] VITALS: BP 139/52
[2017-10-06 11:29] VITALS: BP 129/52
[2017-10-06 15:11] VITALS: BP 146/57
[2017-10-06 20:00] VITALS: BP 139/48
[2017-10-07] VITALS: BP 121/53
[2017-10-07 04:00] VITALS: BP 143/68
[2017-10-07 11:01] VITALS: BP 149/57
[2017-10-07 13:41] VITALS: BP 149/61
[2017-10-07 17:40] VITALS: BP 170/72
[2017-10-07 19:00] VITALS: BP 129/62
[2017-10-07 19:11] LABS: HEPATITIS C ANTIBODY <0.1 (0.0-0.9)
[2017-10-08 04:00] VITALS: BP 147/61
[2017-10-08 09:37] VITALS: BP 124/63
[2017-10-08 11:41] VITALS: BP 133/49
[2017-10-08 14:07] LABS: BASOPHILS 0.1 % (0-2); EOSINOPHILS 0.2 % (0-7); HEMATOCRIT 39.7 % (42.0-54.0); HEMOGLOBIN 12.4 g/dL (13.5-17.5); IMMATURE GRANULOCYTES 0.4 % (0-5); LYMPHOCYTES 9.8 % (15-50); MCH 29.8 pg (26.0-34.0); MCHC 31.2 g/dL (31.0-37.0); MCV 95.4 fL (80.0-100.0); MEAN PLATELET VOLUME 9.5 fL (7.4-10.4); MONOCYTES 6.1 % (2-11); NEUTROPHILS 83.4 % (40-80); RBC 4.16 10x6/uL (4.20-6.10); RDW 14.3 % (11.5-14.5); WBC 8.9 10x3/uL (4.8-10.8)
[2017-10-08 14:08] LABS: PLATELET COUNT 295 10x3/uL (130-400)
[2017-10-08 14:21] LABS: CALC OSMOLALITY 288 mosm/kg (275-300); CALCIUM 8.7 mg/dL (8.5-10.1); CARBON DIOXIDE 30.4 mmol/L (21.0-32.0); CHLORIDE - SERUM 102 mmol/L (98-107); POTASSIUM - SERUM 4.5 mmol/L (3.5-5.1); SODIUM 139 mmol/L (136-145); UREA NITROGEN 18 mg/dL (7-18); eGFR NON AFRICAN AMERICAN 79 mL/min (90-120)
[2017-10-08 14:22] LABS: GLUCOSE 268 mg/dL (74-106)
[2017-10-08 16:01] VITALS: BP 130/66
[2017-10-08 19:12] LABS: FUNGAL - ASP FLAVUS Negative (Neg:<1:1); FUNGAL - ASP NIGER Negative (Neg:<1:1); FUNGAL - ASPER FUMIGATUS Negative (Neg:<1:1)
[2017-10-08 21:44] VITALS: BP 131/61
[2017-10-09 05:58] VITALS: BP 124/48
[2017-10-09 07:48] VITALS: BP 166/64
[2017-10-09 10:52] VITALS: BP 165/77
[2017-10-09] MEDS ORDERED: OMNICEF300 MG PO (13:38)
[2017-10-09] MEDS ORDERED: PLAVIX75 MG PO (13:38)
[2017-10-09] MEDS ORDERED: LIPITOR20 MG PO (13:39)
[2017-10-09] MEDS ORDERED: ASPIRIN325 MG PO (13:39)
[2017-10-09] MEDS ORDERED: MEDROL DOSE PACK4 MG PO (13:41)
== END 2017-10-09 19:48 | disposition home or self-care (01) | DRG 246 ==
LOC: D.ER 14:14 → D.M2 18:40 → OBSVTIME 18:40 → D.M2 10-03 15:20
PROVIDERS: Family Medicine; Internal Medicine Cardiovascular Disease; Internal Medicine Pulmonary Disease
PROC: B2151ZZ Fluoroscopy of Left Heart using Low Osmolar Contrast (ICD-10-PCS; 2017-10-05)
PROC: 4A023N7 Measurement of Cardiac Sampling and Pressure, Left Heart, Percutaneous Approach (ICD-10-PCS; 2017-10-05)
PROC: B3181ZZ Fluoroscopy of Bilateral Internal Carotid Arteries using Low Osmolar Contrast (ICD-10-PCS; 2017-10-05)
PROC: B31G1ZZ Fluoroscopy of Bilateral Vertebral Arteries using Low Osmolar Contrast (ICD-10-PCS; 2017-10-05)
PROC: B3121ZZ Fluoroscopy of Left Subclavian Artery using Low Osmolar Contrast (ICD-10-PCS; 2017-10-05)
PROC: B2111ZZ Fluoroscopy of Multiple Coronary Arteries using Low Osmolar Contrast (ICD-10-PCS; principal; 2017-10-05 11:00)
PROC: 027135Z Dilation of Coronary Artery, Two Arteries with Two Drug-eluting Intraluminal Devices, Percutaneous Approach (ICD-10-PCS; 2017-10-09)
DX: I21.4 Non-ST elevation (NSTEMI) myocardial infarction (principal); J18.9 Pneumonia, unspecified organism; J44.1 Chronic obstructive pulmonary disease with (acute) exacerbation; J44.0 Chronic obstructive pulmonary disease with (acute) lower respiratory infection; A31.0 Pulmonary mycobacterial infection; I25.110 Atherosclerotic heart disease of native coronary artery with unstable angina pectoris; R09.89 Other specified symptoms and signs involving the circulatory and respiratory systems; I65.23 Occlusion and stenosis of bilateral carotid arteries; J31.0 Chronic rhinitis; S01.91XA Laceration without foreign body of unspecified part of head, initial encounter; W18.2XXA Fall in (into) shower or empty bathtub, initial encounter; E78.5 Hyperlipidemia, unspecified; Z72.0 Tobacco use

== ENCOUNTER 2017-10-09 21:58 | Emergency (ER) | payer MEDICARE ==
[2017-10-03 11:02] VITALS: BMI 36.2
[~2017-10-09 21:58] MED LIST: ASPIRIN325 MG PO; LIPITOR20 MG PO; MEDROL DOSE PACK4 MG PO; OMNICEF300 MG PO; PLAVIX75 MG PO
== END 2017-10-09 23:28 | disposition home or self-care (01) ==
LOC: D.ER 21:58
DX: L76.22 Postprocedural hemorrhage of skin and subcutaneous tissue following other procedure (principal); I10 Essential (primary) hypertension

== ENCOUNTER → 2017-11-02 16:46 | Outpatient (CLI) | payer MEDICARE ==
[2017-10-03 11:02] VITALS: BMI 36.2
[2017-11-02 17:32] LABS: CHOL - HDL RATIO 3.8 ratio (2.3-4.9); LDL-HDL RATIO 2.5 ratio (1.5-3.5)
== END | disposition home or self-care (01) ==
LOC: D.LABREF 16:46
PROVIDERS: Internal Medicine Cardiovascular Disease
DX: E78.5 Hyperlipidemia, unspecified (principal)

== ENCOUNTER 2017-12-08 06:56 | Outpatient (CLI) | payer MEDICARE ==
[~2017-12-08] VITALS: Ht 167.6 cm; Wt 102.7 kg
--- NOTE | ~2017-12-08 | HEMODYNAMI ---
PATIENT:RIK TREVINO MEDICAL RECORD: [id number] : 46 LOCATION:[facility] ADMISSION DATE: 12/08/17 Generatedon:12/08/20179:29 Patient name: RIK TREVINO Patient #: [id number] SSN: : 1950 Date of study: 12/08/2017 Page: Of Hemodynamic Procedure Report Patient Data Patient Demographics Procedure consent was obtained First Name: RIK Gender: Male Last Name: BELINDA : 1950 [facility] Initial: REECE Age: 67 year(s) Patient #: [id number] Race: Unknown Additional ID: [id number] Contact details Address: [address] [place] [address] State: [place] City: [facility] Zip code: [address] Past Medical History Allergies: No known allergies Admission Admission Data Admission Date: 12/08/2017 Admission Time: 6:56 Lab Results Lab Result Date: 12/08/2017 Lab Result Time: 7:20 Biochemistry Name Units Result Min Max BUN mg/dl 17 --(---*)-- 7 18 Creatinine mg/dl 1 --(--*-)-- 0.6 1.3 CBC Name Units Result Min Max Hematocrit % 39.6 -*(----)-- 42 54 Hemoglobin g/dl 12.7 -*(----)-- 13.5 17.5 Procedure Procedure Types Cath Procedure Diagnostic Procedure [facility] Coronaries only Sedation Charges Moderate Sedation up to 15 minutes Procedure Description Procedure Date Procedure Date: 12/08/2017 Procedure Start Time: 9:02 Procedure End Time: 9:28 Procedure Staff Name Function Julián Alegre MD Performing Physician Madelin Singh RT Monitor Lima Darden RT Scrub John Reid RN Nurse Procedure Data Cath Procedure Fluoroscopy Diagnostic fluoroscopy Total fluoroscopy Time: 7.5 time: 7.5 min min Diagnostic fluoroscopy Total fluoroscopy dose: dose: 1179 mGy 1179 mGy Contrast Material Contrast Material Type Amount (ml) Isovue 300 74 Entry Location Entry Primary Successful Side Size Upsize Upsize Entry Closure Succes sful Closure Location (Fr) 1 (Fr) 2 (Fr) Remarks Device Remarks Femoral Right 7 Fr Exoseal artery Short Estimated blood loss: 10 ml Diagnostic catheters Device Type Used For End Catheter Placement DIAGNOSTIC JL 4.0 5Fr Procedure catheter ([id number]) Procedure Complications No complications Procedure Medications Medication Administration Route Dosage Oxygen NC 2 l/min Lidocaine 2% added to field 20 Heparin Flush Bag added to field 2 bags (1000units/500ml NS) 0.9% NaCl I.V. 100 ml/hr Versed I.V. 2 mg Fentanyl I.V. 50 mcg Fentanyl I.V. 50 mcg Hemodynamics Rest HGB: 12.7 (g/dl) Heart Rate: 77 (bpm) Snapshots Pre Cath Intra NCS Post Cath Vital Signs Time Heart Resp SPO2 etCO2 NIBP (mmHg) Rhythm Pain Sedation Rate (ipm) (%) (mmHg) Status Level (bpm) 8:52:01 69 12 93 0 134/66(97) NSR 0 (11) 10(A) , No pain 8:56:19 68 13 96 38.4 143/67(110) NSR 0 (11) 10(A) , No pain 9:00:37 69 15 93 16.2 138/66(100) NSR 0 (11) 10(A) , No pain 9:04:57 74 12 93 28.1 125/60(98) NSR 0 (11) 10(A) , No pain 9:09:15 69 13 93 9.6 125/57(93) NSR 0 (11) 9(A) , No pain 9:13:34 75 14 95 13.3 148/76(108) NSR 0 (11) 9(A) , No pain 9:17:58 77 14 95 11.8 153/70(122) NSR 0 (11) 10(A) , No pain 9:22:18 73 13 94 0 147/75(124) NSR 0 (11) 10(A) , No pain 9:26:38 72 14 93 23.6 138/72(117) NSR 0 (11) 10(A) , No pain Medications Time Medication Route Dose Verified Delivered Reason Notes Effec tiveness by by 9:00:22 Oxygen NC 2 Julián Buffie used for l/min Codey Reid RN procedure MD 9:00:23 Lidocaine 2% added 20ml Julián Julián for local to vial Codey Alegre MD anesthetic field MD 9:00:28 Heparin Flush added 2 Julián Julián used for Bag to bags Codey Alegre MD procedure (1000units/500ml field BOO NS) 9:00:37 0.9% NaCl I.V. 100 Julián Buffie Per ml/hr Codey Reid RN physician 9:02:44 Versed I.V. 2 mg Julián Buffie for Codey Reid RN sedation 9:02:50 Fentanyl I.V. 50 Julián Buffie for mcg Codey Reid RN sedation 9:15:44 Fentanyl I.V. 50 Julián Buffie for mcg Codey Reid RN sedation Procedure Log Time Note 8:30:12 Madelin Singh RT(R) sent for patient. Start room use. 8:47:12 Time tracking: Regular hours 8:47:16 Plan of Care:Hemodynamics will remain stable., Cardiac rhythm will remain stable., Comfort level will be maintained., Respiratory function will remain adequate., Patient/ family verbilizes understanding of procedure., Procedure tolerated without complication., Recovers from procedure without complications.. 8:47:32 Patient received from Pre/Post Procedure Room to CCL 2 Alert and oriented. Tansferred to table in Supine position. 8:47:33 Warm blankets applied, and eduard hugger turned on for patient comfort. 8:47:33 Correct patient and procedure confirmed by team. 8:47:34 Signed procedure consent form obtained from patient. 8:47:35 ECG and BP/O2 sat monitors applied to patient. 8:50:55 Vital chart was started 8:50:57 Baseline sample Acquired. 8:51:00 Rhythm: sinus rhythm 8:51:01 Full Disclosure recording started 8:51:19 H&P Date Dictated: 12/01/2017 Within 30 days and on chart., H&P Addendum completed by physician on day of procedure. (MUST COMPLETE FOR ALL OUTPATIENTS). 8:51:20 Pre-procedure instructions explained to patient. 8:51:21 Pre-op teaching completed and patient verbalized understanding. 8:51:21 Family in waiting room. 8:51:23 Patient NPO since Midnight. 8:51:28 Patient allergic to No known allergies 8:51:30 Is the patient allergic to Iodine/contrast media? No. 8:51:31 Is patient on blood thinner?Yes 8:51:33 ACC The patient was administered the following blood thiners within the last 24 hours: ACCPlavix 8:51:34 Patient diabetic? No. 8:51:36 Previous problem with sedation/anesthesia? No ? 8:51:37 Snore? Yes 8:51:38 Sleep apnea? No 8:51:39 Deviated septum? No 8:51:39 Opens mouth fully? Yes 8:51:40 Sticks out tongue? Yes 8:51:43 Airway obstruction? Yes copd 8:51:46 Dentures? No ? 8:51:55 Pre procedure: right dorsailis pedis pulse 2+ Normal; easily identifiable; not easily obliterated 8:51:57 Patient pain scale 0/10 ?. 8:52:00 IV patent on arrival in left hand with 0.9% NaCl at [facility]. 8:53:10 Lab Result : BUN 17 mg/dl 8:53:10 Lab Result : Hemoglobin 12.7 g/dl 8:53:10 Lab Result : Creatinine 1 mg/dl 8:53:10 Lab Result : Hematocrit 39.6 % 8:53:12 Lab results completed and on chart. 8:53:14 Right groin area was prepped with chlora-prep and draped in sterile fashion 8:53:21 ACIST Syringe (12814) opened to sterile field. 8:53:22 Bag Decanter () opened to sterile field. 8:53:22 Medline Cath Pack ([id number]) opened to sterile field. 8:53:24 DIAGNOSTIC WIRE .035 260cm J wire (665649) opened to sterile field. 8:53:26 ACIST Manifold (92826) opened to sterile field. 8:53:26 ACIST Hand Control (60232) opened to sterile field. 8:53:28 Tegaderm 4 x 4 (1626W) opened to sterile field. 8:53:30 MICROPUNCTURE 4FR Cook (Y87150) opened to sterile field. 8:53:42 SHEATH 6Fr Prelude ([id number]) opened to sterile field. 8:53:48 INFLATOR Merit BasixCompak (OJ4515) opened to sterile field. 8:53:49 COPILOT Valve Control (4854664) opened to sterile field. 8:53:58 Alarms reviewed by RGeorge N. 8:53:59 Sharps counted by scrub and verified by R.N. 8:56:53 Physician arrived 8:56:53 --------ALL STOP TIME OUT------ 8:56:54 Final Timeout: patient, procedure, and site verified with staff and physician. All members of the team are in agreement. 8:56:55 Right groin site verified by team. 8:56:57 Physical assessment completed. ASA score P 2 - A patient with mild systemic disease as per Julián Alegre MD. 8:56:59 Sedation plan: IV Moderate Sedation Medication:Versed, Fentanyl 9:00:22 Oxygen 2 l/min NC was administered by John Reid RN; used for procedure; 9:00:23 Lidocaine 2% 20ml vial added to field was administered by Julián Alegre MD; for local anesthetic; 9:00:28 Heparin Flush Bag (1000units/500ml NS) 2 bags added to field was administered by Julián Alegre MD; used for procedure; 9:00:37 0.9% NaCl 100 ml/hr I.V. was administered by John Reid RN; Per physician; 9:01:08 Use device set Femoral Dx 9:01:10 ACIST Syringe (59795) opened to sterile field. 9:01:11 Bag Decanter (2002S) opened to sterile field. 9:01:13 Medline Cath Pack ([id number]) opened to sterile field. 9:01:15 DIAGNOSTIC WIRE .035 260cm J wire (271347) opened to sterile field. 9:01:18 ACIST Hand Control (32147) opened to sterile field. 9:01:19 ACIST Manifold (52654) opened to sterile field. 9:01:20 DIAGNOSTIC Multipack 5Fr catheter set (DR0607) opened to sterile field. 9:01:20 Tegaderm 4 x 4 (1626W) opened to sterile field. 9:01:28 MICROPUNCTURE 4FR Cook (P32706) opened to sterile field. 9:02:06 SHEATH 7FR Washburn (TTC402) opened to sterile field. 9:02:14 INFLATOR Merit BasixCompak (FS4370) opened to sterile field. 9:02:18 Procedure started. 9:02:44 Versed 2 mg I.V. was administered by John Reid RN; for sedation; 9:02:45 Local anesthetic to right femoral artery with Lidocaine 2% by Julián Alegre MD.INITIAL ACCESS ONLY 9:02:50 Fentanyl 50 mcg I.V. was administered by John Reid RN; for sedation; 9:03:46 Zero performed for pressure channel P1 9:04:14 Access obtained with 4Fr micropunture. 9:05:29 A 7 Fr Short sheath was inserted into the Right Femoral artery 9:09:26 GUIDE 7 FR ART 3.5 catheter ([id number]) opened to sterile field. 9:09:35 Proceeding to intervention. 9:09:52 7 Fr ART 3.5 guide catheter was inserted over the wire 9:13:56 InfluAds guidewire (NO COST) opened to sterile field. 9:13:57 COPILOT Valve Control (5166131) opened to sterile field. 9:14:24 [employer]ARMGO[employer]Inc. Bro wire advanced. 9:15:44 Fentanyl 50 mcg I.V. was administered by John Reid RN; for sedation; 9:21:42 Wire removed. 9:21:58 unable to cross total occlusion 9:22:06 Guide catheter removed. 9:22:34 A DIAGNOSTIC JL 4.0 5Fr catheter ([id number]) was advanced over the wire and used for Procedure. 9:22:59 LCA angiography performed. 9:24:59 Catheter removed. 9:25:10 EXOSEAL 7Fr (EX700) opened to sterile field. 9:25:33 Sheath removed intact; hemostasis achieved with Exoseal to the Right Femoral artery. 9:26:16 Procedure ended.(Physican Out) 9:26:31 Fluoroscopy time 07.50 minutes. 9:26:37 Flurop Dose total: 1179 9:26:37 Fluoroscopy dose: 1179 mGy 9:26:41 Contrast amount:Isovue 300 74ml. 9:26:42 Sharps counted by scrub and verified by R.N. 9:26:44 Insertion/operative site no bleeding no hematoma. 9:26:47 Post-op/insertion site Right Femoral artery dressed using a 4 x 4 and Tegaderm. 9:26:51 Post right femoral artery:stable 9:26:55 Post Procedure Pulses reassessed and unchanged 9:27:03 Post-procedure physical assessment completed. ASA score P 2 - A patient with mild systemic disease as per Julián Alegre MD. 9:27:07 Post procedure rhythm: unchanged. 9:27:11 Estimated blood loss: 10 ml 9:27:18 Post procedure instruction explained to patient.Patient verbalizes understanding. 9:27:44 Procedure type changed to Cath procedure, Diagnostic procedure, LHC, Coronaries only, Sedation Charges, Moderate Sedation up to 15 minutes 9:27:46 Procedure and supply charges have been captured, reviewed, submitted and are correct. 9:28:12 Procedure Complication : No complications 9:28:14 Vital chart was stopped 9:28:14 See physician's report for complete and final results. 9:28:16 Report given to Pre/Post Procedure Room. 9:28:19 Patient transfered to Pre/Post Procedure Room with Stretcher. 9:28:22 Procedure ended. 9:28:22 Full Disclosure recording stopped 9:28:26 End room use (Document Last) 9:28:26 End room use (Document Last) Device Usage Item Name Manufacture Quantity Catalog Number Hospital Part Current Min imal Lot# / Charge Number Stock Stock Serial# Code ACIST Syringe Acist 2 05463 602719 224974 341875 20 (62302) Medical Systems Inc Bag Decanter Microtek 2 2001S 347113 61712 567801 5 (2001S) Medical Inc. Medline Cath Cardinal 2 [id number] 564463 [address] [facility] ([id number]) DIAGNOSTIC St Shadi 2 725675 454031 104736 352831 30 WIRE .035 260cm J wire (201468) ACIST Acist 2 95544 025469 711732 130887 5 Manifold Medical (91170) Systems Inc ACIST Hand Acist 2 92616 779217 626474 255109 5 Control Medical (10290) Systems Inc Tegaderm 4 x 3M 2 1626W 784419 820291 150549 5 4 (1626W) MICROPUNCTURE Kabooza Medical 2 J33645 066683 555795 256647 5 4FR Cook (D28008) SHEATH 6Fr Merit 1 [id number] 395526 540940 211571 5 Prelude Medical ([id number]) INFLATOR Merit 2 OP5929 412087 052041 233759 15 [facility] Medical BasixCompak (WV4849) COPILOT Valve Garcia 2 [id number] 798331 863359 457294 5 Control Vascular (2777755) DIAGNOSTIC Cardinal 1 PJ7459 410027 27035 025171 30 Multipack 5Fr Health catheter set (XX3603) SHEATH 7FR Terumo 1 NES665 862614 352046 967367 5 Washburn (TDZ865) GUIDE 7 FR [place] 1 [id number] 850243 50757 123061 0 ART 3.5 Scientific catheter ([id number]) MIRACLEBROS Garcia 1 [id number] 646945 908524 5 guidewire (NO Vascular COST) DIAGNOSTIC JL Cardinal 1 [id number] 007560 235713 017903 10 4.0 5Fr Health catheter (809272S) EXOSEAL 7Fr Cardinal 1 EX700 783469 281133 234753 5 (EX700) Health Signature Audit [place] Stage Time Signature Unsigned Intra-Procedure 12/08/2017 Madelin Singh 9:28:53 AM RT(R) Signatures Monitor : Madelin Singh Signature : RT Date : Time : [address] [address] [place] [address]
[2017-12-08] MEDS ORDERED: IPRAT-ALBUT 0.5-3 ML UPD (07:05)
[2017-12-08] MEDS ORDERED: FLOVENT HFA 410.6 GM INH (07:06)
[2017-12-08 07:16] VITALS: BP 129/53; Ht 167.6 cm; Wt 102.7 kg
[2017-12-08 07:25] LABS: BASOPHILS 0.6 % (0-2); EOSINOPHILS 6.4 % (0-7); HEMATOCRIT 39.6 % (42.0-54.0); HEMOGLOBIN 12.7 g/dL (13.5-17.5); IMMATURE GRANULOCYTES 0.3 % (0-5); LYMPHOCYTES 20.9 % (15-50); MCH 29.3 pg (26.0-34.0); MCHC 32.1 g/dL (31.0-37.0); MCV 91.5 fL (80.0-100.0); MEAN PLATELET VOLUME 9.2 fL (7.4-10.4); NEUTROPHILS 58.8 % (40-80); PLATELET COUNT 294 10x3/uL (130-400); RBC 4.33 10x6/uL (4.20-6.10); RDW 14.2 % (11.5-14.5); WBC 6.4 10x3/uL (4.8-10.8)
[2017-12-08 07:39] LABS: CALC OSMOLALITY 287 mosm/kg (275-300); CALCIUM 8.5 mg/dL (8.5-10.1); CHLORIDE - SERUM 108 mmol/L (98-107); POTASSIUM - SERUM 4.2 mmol/L (3.5-5.1); SODIUM 143 mmol/L (136-145); UREA NITROGEN 17 mg/dL (7-18); eGFR NON AFRICAN AMERICAN 79 mL/min (90-120)
[2017-12-08 07:42] LABS: GLUCOSE 124 mg/dL (74-106)
== END 2017-12-08 15:20 | disposition home or self-care (01) ==
LOC: D.CATH 06:56
PROVIDERS: Internal Medicine Cardiovascular Disease
DX: I25.119 Atherosclerotic heart disease of native coronary artery with unspecified angina pectoris (principal); I42.9 Cardiomyopathy, unspecified; R07.9 Chest pain, unspecified; F17.200 Nicotine dependence, unspecified, uncomplicated; Z01.812 Encounter for preprocedural laboratory examination

== ENCOUNTER → 2018-01-11 10:12 | Outpatient (CLI) | payer MEDICARE ==
[2017-12-08 07:16] VITALS: BMI 36.5
[~2018-01-11 10:12] MED LIST changes: +FLOVENT HFA 410.6 GM INH; +IPRAT-ALBUT 0.5-3 ML UPD
== END | disposition home or self-care (01) ==
LOC: D.RAD 12-30 10:15
DX: J98.4 Other disorders of lung (principal)

== ENCOUNTER → 2018-04-20 17:26 | Outpatient (CLI) | payer MEDICARE ==
[2017-12-08 07:16] VITALS: BMI 36.5
[~2018-04-20 17:26] MED LIST changes: +AUGMENTIN 875-11 TAB PO; +HYDROCODON-ACE1 EAC7 PO
[2018-04-20 18:08] LABS: ALBUMIN 3.4 g/dL (3.4-5.0); BILIRUBIN - INDIRECT 0.19 mg/dL (0.00-1.00); BILIRUBIN - TOTAL 0.19 mg/dL (0.2-1.3); CHOL - HDL RATIO 3.9 ratio (2.3-4.9); LDL-HDL RATIO 2.6 ratio (1.5-3.5); PROTEIN - SERUM 7.1 g/dL (6.4-8.2)
== END | disposition home or self-care (01) ==
LOC: D.LABREF 17:26
PROVIDERS: Internal Medicine Cardiovascular Disease
DX: I25.10 Atherosclerotic heart disease of native coronary artery without angina pectoris (principal); E78.5 Hyperlipidemia, unspecified

== ENCOUNTER 2018-05-03 17:33 | Emergency (ER) | payer MEDICARE ==
[~2018-05-03] VITALS: Ht 167.6 cm; Wt 101.8 kg
[~2018-05-03 17:33] MED LIST changes: -AUGMENTIN 875-11 TAB PO; -HYDROCODON-ACE1 EAC7 PO
[2018-05-03 17:48] VITALS: Ht 167.6 cm; Wt 101.8 kg
[2018-05-03] MEDS ORDERED: HYDROCODON-ACE1 EAC7 PO (20:16)
[2018-05-03] MEDS ORDERED: AUGMENTIN 875-11 TAB PO (20:18)
[2018-05-03 20:42] VITALS: BP 156/66
== END 2018-05-03 20:48 | disposition home or self-care (01) ==
LOC: D.ER 17:33
DX: S60.221A Contusion of right hand, initial encounter (principal); W54.0XXA Bitten by dog, initial encounter; Y93.89 Activity, other specified; Y92.019 Unspecified place in single-family (private) house as the place of occurrence of the external cause; J44.9 Chronic obstructive pulmonary disease, unspecified; F17.200 Nicotine dependence, unspecified, uncomplicated

== ENCOUNTER 2018-09-15 04:48 | Emergency (ER) | payer MEDICARE ==
[~2018-09-15] VITALS: Ht 167.6 cm; Wt 95.5 kg
[~2018-09-15 04:48] MED LIST changes: +AUGMENTIN 875-11 TAB PO; +HYDROCODON-ACE1 EAC7 PO
[2018-09-15 04:52] VITALS: Ht 167.6 cm; Wt 95.5 kg
[2018-09-15] MEDS ORDERED: FISH OIL 1,0001 CA1 PO (04:54)
[2018-09-15] MEDS ORDERED: CO Q-1030 MG PO (04:55)
[2018-09-15 05:45] LABS: APPEARANCE CLEAR (CLEAR); COLOR YELLOW (YELLOW); GLUCOSE NEGATIVE (NEGATIVE); KETONE NEGATIVE (NEGATIVE); NITRITE NEGATIVE (NEGATIVE); PROTEIN NEGATIVE (NEGATIVE)
[2018-09-15 05:46] LABS: BACTERIA FEW /hpf (NONE SEEN); BILIRUBIN NEGATIVE (NEGATIVE); EPITHELIAL CELLS 0-5 /hpf (0-5); RED CELLS - URINE 0-5 /hpf (0-5); UROBILINOGEN NORMAL (NORMAL); WHITE CELLS - URINE 0-5 /hpf (0-5)
[2018-09-15 05:51] LABS: ALBUMIN 3.2 g/dL (3.4-5.0); ANION GAP 12.2 mmol/L (8-16); BILIRUBIN - TOTAL 0.47 mg/dL (0.2-1.3); CALCIUM 8.3 mg/dL (8.5-10.1); CARBON DIOXIDE 30.1 mmol/L (21.0-32.0); CREATININE - SERUM 1.1 mg/dL (0.6-1.3); POTASSIUM - SERUM 4.3 mmol/L (3.5-5.1); PROTEIN - SERUM 7.5 g/dL (6.4-8.2)
[2018-09-15 05:52] LABS: BASOPHILS 0.2 % (0-2); EOSINOPHILS 1.4 % (0-7); HEMATOCRIT 43.6 % (42.0-54.0); IMMATURE GRANULOCYTES 0.3 % (0-5); LYMPHOCYTES 8.9 % (15-50); MCH 29.6 pg (26.0-34.0); MCHC 32.1 g/dL (31.0-37.0); MCV 92.2 fL (80.0-100.0); MEAN PLATELET VOLUME 9.6 fL (7.4-10.4); MONOCYTES 7.2 % (2-11); PLATELET COUNT 272 10x3/uL (130-400); RBC 4.73 10x6/uL (4.20-6.10); RDW 15.5 % (11.5-14.5); WBC 6.4 10x3/uL (4.8-10.8)
[2018-09-15 05:56] LABS: CREATINE KINASE 65 UL (21-232)
[2018-09-15] MEDS ORDERED: ZOFRAN ODT4 MG/UDTAB PO (05:59)
[2018-09-15 06:00] LABS: TROPONIN-I < 0.017 ng/mL (0.000-0.060)
[2018-09-15 07:33] VITALS: BP 163/49
== END 2018-09-15 07:35 | disposition home or self-care (01) ==
LOC: D.ER 04:48
PROVIDERS: Emergency Medicine
DX: R11.2 Nausea with vomiting, unspecified (principal); E86.0 Dehydration; J44.9 Chronic obstructive pulmonary disease, unspecified; F17.200 Nicotine dependence, unspecified, uncomplicated

== ENCOUNTER 2018-10-18 11:08 | Day surgery (SDC) | payer MEDICARE ==
[~2018-10-18] VITALS: Ht 167.6 cm; Wt 95.5 kg
[~2018-10-18 11:08] MED LIST changes: +CO Q-1030 MG PO; +FISH OIL 1,0001 CA1 PO; +ZOFRAN ODT4 MG/UDTAB PO
[2018-10-18 11:40] LABS: HEMATOCRIT 43.6 % (42.0-54.0); HEMOGLOBIN 14.6 g/dL (13.5-17.5); MCH 29.9 pg (26.0-34.0); MCHC 33.5 g/dL (31.0-37.0); MCV 89.3 fL (80.0-100.0); MEAN PLATELET VOLUME 9.8 fL (7.4-10.4); RBC 4.88 10x6/uL (4.20-6.10); RDW 15.4 % (11.5-14.5)
[2018-10-18 11:52] LABS: ANION GAP 17.9 mmol/L (8-16); CALCIUM 8.8 mg/dL (8.5-10.1); CARBON DIOXIDE 24.4 mmol/L (21.0-32.0); CREATININE - SERUM 1.1 mg/dL (0.6-1.3); POTASSIUM - SERUM 4.3 mmol/L (3.5-5.1)
[2018-10-18 12:17] VITALS: BP 144/66; Ht 167.6 cm; Wt 95.5 kg
--- NOTE | 2018-10-18 15:06 | NUR ---
DC INSTRUCTIONS GIVEN TO PT/FAMILY. STATE UNDERSTANDING. DC'D IV CATH FULLY INTACT.
--- NOTE | 2018-10-18 15:28 | NUR ---
PT LEFT UNIT VIA WC AT 1523
--- NOTE | 2018-10-20 10:57 | OP ---
PATIENT NAME: RIK TREVINO MEDICAL RECORD: [id number] :46 [facility] DATE: SURGEON: DEMI FRIAS DO DATE OF OPERATION: 10/18/2018 PROCEDURE: Colonoscopy with polypectomy. INDICATION FOR PROCEDURE: Heme-positive stools. SCOPE: Olympus video pediatric colonoscope. MEDICATIONS: Propofol 540 mg IV per anesthesia. WITHDRAWAL TIME: 18 minutes. ESTIMATED BLOOD LOSS: Minimal. COMPLICATIONS: None. FINDINGS: Informed consent was given. The patient was made comfortable with the above medication. After reaching an adequate level of sedation by slow IV push, the patient was placed on his left side. A digital rectal examination was performed and was normal. The endoscope was then advanced under direct visualization through the rectum to the cecum, confirmed by the presence of the appendiceal orifice and the ileocecal valve. The endoscope was slowly withdrawn and mucosa was carefully examined. The prep quality was good. There were multiple polyps visualized on today's examination. The first was located in the cecum. It was a benign-appearing sessile polyp, which measured approximately 3 mm in diameter. It was removed using hot forceps. In the transverse colon, there were 3 separate polyps. Two were benign-appearing and sessile and ranged in size from 2-4 mm in diameter. They were both removed using hot forceps. The third polyp was a larger polyp, which was mixed flat and sessile type, which measured approximately 8 mm in diameter. It was removed using a hot snare in one piece. In the descending colon, there were 5 separate benign-appearing sessile polyps, which ranged in size from 2-4 mm in diameter. They were all removed using hot forceps. In the rectum, there was a single benign-appearing polyp, which measured approximately 6 mm in diameter. It was removed using hot forceps. Retroflexion was performed in the rectum with visualization of grade I internal hemorrhoids without active bleeding. The remainder of the examination was normal. The endoscope was withdrawn from the patient. The patient tolerated the procedure well and there were no complications. IMPRESSION: 1. Multiple polyps as described above, removed using a combination of hot forceps and a hot snare. 2. Grade I internal hemorrhoids without bleeding. PLAN AND RECOMMENDATIONS: 1. Discharge home when recovery parameters are met. 2. Follow up biopsy specimen results. 3. High-fiber diet. 4. Continue current medications. 5. Recall colonoscopy in 3 years. TRANSINT:[id number] Voice Confirmation ID: [id number] DOCUMENT ID: [id number] OPERATIVE REPORT [id number] RIK TREVINO,DEMI Palmer DO at 1057 CC: [id number] DICTATION DATE: 10/18/18 1430 [facility] ARCHITECT: 10/18/18 1526 [facility] 10/18/18 [id number] [place] [address]
== END 2018-10-18 15:23 | disposition home or self-care (01) ==
LOC: D.OPS 11:08
PROVIDERS: Anesthesiology
DX: K92.1 Melena (principal); D12.0 Benign neoplasm of cecum; D12.4 Benign neoplasm of descending colon; D12.3 Benign neoplasm of transverse colon

== ENCOUNTER → 2019-01-03 07:49 | Outpatient (CLI) | payer MEDICARE ==
[2018-10-18 12:17] VITALS: BMI 33.9
== END | disposition home or self-care (01) ==
LOC: D.RT 07:49
PROVIDERS: ATTEND Internal Medicine Pulmonary Disease
DX: R93.89 Abnormal findings on diagnostic imaging of other specified body structures (principal); J44.9 Chronic obstructive pulmonary disease, unspecified

== ENCOUNTER → 2020-03-06 15:10 | Outpatient (CLI) | payer MEDICARE ==
[2018-10-18 12:17] VITALS: BMI 33.9
== END | disposition home or self-care (01) ==
LOC: D.LAB 15:10
PROVIDERS: ATTEND Internal Medicine Pulmonary Disease
DX: Z11.59 Encounter for screening for other viral diseases (principal)

== ENCOUNTER → 2020-03-09 08:35 | Outpatient (CLI) | payer MEDICARE ==
[2018-10-18 12:17] VITALS: BMI 33.9
== END | disposition home or self-care (01) ==
LOC: D.RT 08:35
PROVIDERS: ATTEND Internal Medicine Pulmonary Disease
DX: J44.9 Chronic obstructive pulmonary disease, unspecified (principal); Z11.59 Encounter for screening for other viral diseases

== ENCOUNTER 2021-02-11 19:07 | Inpatient (IN) | payer MEDICARE ==
[~2021-02-11] VITALS: Ht 167.6 cm; Wt 90.9 kg
[2021-02-11 19:59] LABS: BASOPHILS 0.7 % (0-2); EOSINOPHILS 1.6 % (0-7); HEMATOCRIT 44.1 % (42.0-54.0); LYMPHOCYTES 7.4 % (15-50); MCH 28.4 pg (26.0-34.0); MCHC 31.8 g/dL (31.0-37.0); MCV 89.3 fL (80.0-100.0); MEAN PLATELET VOLUME 6.8 fL (7.4-10.4); MONOCYTES 7.1 % (2-11); NEUTROPHILS 83.2 % (40-80); RBC 4.94 10x6/uL (4.20-6.10); RDW 16.7 % (11.5-14.5); WBC 16.4 10x3/uL (4.8-10.8)
[2021-02-11 20:06] LABS: APTT 27.7 SECONDS (22.8-39.4); INR 1.1 (0.85-1.17); PROTIME 13.2 SECONDS (11.6-15.0)
[2021-02-11 20:10] LABS: PLATELET COUNT 354 10x3/uL (130-400)
[2021-02-11 20:16] LABS: CALC OSMOLALITY 282 mosm/kg (275-300); CARBON DIOXIDE 31.6 mmol/L (21.0-32.0); CHLORIDE - SERUM 103 mmol/L (98-107); CREATININE - SERUM 0.8 mg/dL (0.6-1.3); GLUCOSE 121 mg/dL (74-106); POTASSIUM - SERUM 4.5 mmol/L (3.5-5.1); SODIUM 141 mmol/L (136-145); UREA NITROGEN 16 mg/dL (7-18); eGFR NON AFRICAN AMERICAN > 90 mL/min (90-120)
[2021-02-11 20:24] LABS: ALBUMIN 3.6 g/dL (3.4-5.0); ALKALINE PHOSPHATASE 88 U/L (30-120); ALT (SGPT) 38 U/L (10-68); BILIRUBIN - TOTAL 0.22 mg/dL (0.2-1.3); CKMB 1.7 U/L (0.0-3.6); CREATINE KINASE 57 UL (21-232); PRO BNP 64 pg/mL (0-125); PROTEIN - SERUM 8.1 g/dL (6.4-8.2); TROPONIN-I < 0.017 ng/mL (0.000-0.060)
--- NOTE | 2021-02-11 23:30 | NUR ---
RECEIVED PT FROM ED VIA WHEELCHAIR, A&O X4. PIV TO RIGHT AC PATENT AND S/L, NO REDNESS OR SWELLING. O2 SAT 93% ON 2L VIA NC, EXPIRATORY WHEEZES NOTED AND DIMINISHED LOWER LOBE SOUNDS. PT ABLE TO AMBUALTE AD KAMERON. EDUCATED PT ON CL AND NEEDS, VERBALIZED UNDERSTANDING. BED LOW, CL IN REACH.
--- NOTE | 2021-02-11 23:41 | NUR ---
LEVAQUIN 500 STARTED 2218 FINISHED 2309. 100ML INFUSED.
[2021-02-12 01:56] VITALS: BP 147/65; Ht 167.6 cm; Wt 90.9 kg
[2021-02-12 04:00] VITALS: BP 123/48
[2021-02-12 08:56] VITALS: BP 145/64
[2021-02-12 12:38] VITALS: BP 135/59
[2021-02-12 17:24] VITALS: BP 132/61
--- NOTE | 2021-02-12 19:45 | NUR ---
RECEIVED BEDSIDE REPORT. PT LAYING IN BED A&O X4. PIV TO RIGHT AC PATENT AND SL, NO REDNESS OR SWELLING. O2 SAT 96% ON 3L VIA NC. LUNG SOUNDS DIMINISHED ALL LOBES, WHEEZING UPPER LOBES. EDUCATED PT ON CL AND NEEDS, VERBALIZED UNDERSTANDING. BED LOW, CL IN REACH.
[2021-02-12 20:00] VITALS: BP 121/57
[2021-02-13] VITALS (7 sets, daily range): BP systolic 128–155; BP diastolic 53–62
[2021-02-13 06:17] LABS: BASOPHILS 0.1 % (0-2); EOSINOPHILS 0 % (0-7); HEMATOCRIT 39.8 % (42.0-54.0); HEMOGLOBIN 12.7 g/dL (13.5-17.5); LYMPHOCYTES 6.7 % (15-50); MCH 28.5 pg (26.0-34.0); MCHC 31.9 g/dL (31.0-37.0); MCV 89.1 fL (80.0-100.0); MEAN PLATELET VOLUME 7.2 fL (7.4-10.4); MONOCYTES 5.7 % (2-11); NEUTROPHILS 87.5 % (40-80); PLATELET COUNT 338 10x3/uL (130-400); RBC 4.46 10x6/uL (4.20-6.10); RDW 16.3 % (11.5-14.5); WBC 14.7 10x3/uL (4.8-10.8)
[2021-02-13 06:49] LABS: CALC OSMOLALITY 280 mosm/kg (275-300); CALCIUM 9.2 mg/dL (8.5-10.1); CARBON DIOXIDE 27.3 mmol/L (21.0-32.0); CHLORIDE - SERUM 103 mmol/L (98-107); CREATININE - SERUM 0.8 mg/dL (0.6-1.3); GLUCOSE 150 mg/dL (74-106); POTASSIUM - SERUM 4.6 mmol/L (3.5-5.1); SODIUM 138 mmol/L (136-145); UREA NITROGEN 17 mg/dL (7-18); eGFR NON AFRICAN AMERICAN > 90 mL/min (90-120)
--- NOTE | 2021-02-13 07:30 | NUR ---
PT SITTING UP IN BED. O2 @ 3L NC IN PLACE AFTER MUCH EXPLANATION OF EXPLAINING IMPORTANCE OF KEEPING O2 IN PLACE. PT VOICES UNDERSTANDING. SALINE LOC TO RIGHT AC SITE WITHOUT REDNESS OR EDEMA. DENIES PAIN AT THIS TIME. DENIES FURTHER NEEDS AT THIS TIME. CL WITHIN REACH. ENCOURAGED TO CALL WITH NEEDS CONTINUE POC
--- NOTE | 2021-02-13 08:26 | HP ---
PATIENT: RIK TREVINO MEDICAL RECORD: [id number] ACCOUNT: [id number] LOCATION:[facility] [id number] : 46 ADMISSION DATE: 02/11/21 PCP: EULALIO PARTIDA MD HISTORY AND PHYSICAL EXAMINATION DATE OF ADMISSION: 02/11/2021. CHIEF COMPLAINT: Increased shortness of breath. HISTORY OF PRESENT ILLNESS: This is a 70-year-old white male with a known history of COPD, followed by Dr. Cruz who presented to the Emergency Department with increased shortness of breath over the last couple of days. He just does not feel right. He feels full in his chest. He has home oxygen and nebulizer at home and that was not helping his symptoms and unfortunately he continues to smoke. In the ER, his O2 sat was 89-90%. His white count was a little elevated. Chest x-ray showed no obvious infiltrate. He is admitted with COPD exacerbation, possible bronchitis. PAST MEDICAL AND SURGICAL HISTORY: COPD, again followed by Dr. Cruz. He has home O2. He has coronary artery disease and a history of hyperlipidemia. PAST SURGICAL HISTORY: Coronary stents, tonsillectomy, some tumor removed from his shoulder. ALLERGIES: HYDROCODONE CAUSED UPSET STOMACH. SOCIAL HISTORY: He is . He works at [employer] on the [employer] shift. HABITS: He continues to smoke around a pack a day. Denies alcohol or drug use. FAMILY HISTORY: Noncontributory. HOME MEDICATIONS: He takes Plavix 75 mg once a day, atorvastatin 80 mg once a day, Mucinex twice a day, CoQ10 twice a day, aspirin 325 mg pills he takes 3 pills twice a day, fish oil 1000 two pills twice a day, zinc 50 once a day, vitamin E and vitamin C. He uses DuoNeb via his nebulizer at home and Flovent 2 puffs twice a day. REVIEW OF SYSTEMS: GENERAL: No major weight changes. HEENT: No particular sinus or allergy problems. RESPIRATORY: He has COPD and continues to smoke. He is followed by Dr. Cruz. CARDIAC: History of coronary stents, followed by Dr. Sandoval. GASTROINTESTINAL: He has occasional heartburn. GENITOURINARY: No significant problems there. MUSCULOSKELETAL: No significant arthritis or pains. NEUROLOGIC: No migraines. No seizures. PSYCHIATRIC: Denies depression or melancholia. PHYSICAL EXAMINATION: VITAL SIGNS: Temperature 98.1, pulse 87, respirations 19, blood pressure 123/48, O2 sat is 94% on 2 liters. GENERAL: He is awake and alert. He does not appear in distress at this time. SKIN: Warm and dry. HEENT: Grossly within normal limits. HISTORY AND PHYSICAL [id number] RIK TREVINO NECK: Supple. No bruit. HEART: Regular rate and rhythm. LUNGS: With scattered wheeze. Distant breath sounds bilaterally. ABDOMEN: Soft, flat, nontender. EXTREMITIES: No edema. NEUROLOGIC: Unremarkable. LABORATORY DATA AND DIAGNOSTIC STUDIES: CBC with a white count of 16,400, hemoglobin 14.0, hematocrit 44.1. Basic metabolic panel: Sodium 141, potassium 4.5, chloride 103, CO2 of 31.6, BUN 16, creatinine 0.8, glucose 121, calcium 9.0. Liver functions are all normal. INR 1.1. Troponin less than 0.017. ProBNP 64. Chest x-ray shows nothing acute. EKG with sinus tachycardia. ASSESSMENT: 1. Chronic obstructive pulmonary disease disease exacerbation. 2. Cofzt-to-mvjrzsm bronchitis. 3. Nicotine abuse. 4. History of heart disease. PLAN: He is admitted, started on respiratory meds, IV steroids, Levaquin. We will ask Dr. Cruz to see and make further recommendations for his breathing. Other tests or procedures as warranted. TRANSINT:[id number] Voice Confirmation ID: [id number] DOCUMENT ID: [id number] EULALIO PARTIDA MD at 0826 CC: [id number] DICTATION DATE: 02/12/21830 PRODUCT DEVELOPMENT CONSULTANT: 02/12/21 0901 ADM IN [place] [id number] [place] [id number]
--- NOTE | 2021-02-13 19:45 | NUR ---
RECEIVED BEDSIDE REPORT. PT LAYING IN BED A&O X4. PIV TO RIGHT AC, PATENT AND S/L, NO REDNESS OR SWELLING. O2 SAT 96% ON 3L VIA NC, LUNG SOUNDS EXPIRATORY WHEEZING UPPER LOBES, LUNG SOUNDS DIMINISHED LOWER LOBES. PT ABLE TO AMBULATE AD KAMERON. EDUCATED PT ON CL AND NEEDS, VERBALIZED UNDERSTANDING. BED LOW, CL IN REACH.
[2021-02-14] VITALS: BP 139/65; BP 155/61
[2021-02-14 04:00] VITALS: BP 148/63
[2021-02-14 06:24] LABS: BASOPHILS 0.1 % (0-2); EOSINOPHILS 0 % (0-7); HEMATOCRIT 38.1 % (42.0-54.0); HEMOGLOBIN 12.4 g/dL (13.5-17.5); LYMPHOCYTES 5.9 % (15-50); MCH 28.6 pg (26.0-34.0); MCHC 32.5 g/dL (31.0-37.0); MCV 88.1 fL (80.0-100.0); MEAN PLATELET VOLUME 7.1 fL (7.4-10.4); MONOCYTES 4.8 % (2-11); NEUTROPHILS 89.2 % (40-80); PLATELET COUNT 331 10x3/uL (130-400); RBC 4.32 10x6/uL (4.20-6.10); RDW 16.1 % (11.5-14.5)
[2021-02-14 06:53] LABS: CALC OSMOLALITY 283 mosm/kg (275-300); CALCIUM 8.9 mg/dL (8.5-10.1); CARBON DIOXIDE 29.6 mmol/L (21.0-32.0); CHLORIDE - SERUM 104 mmol/L (98-107); CREATININE - SERUM 0.8 mg/dL (0.6-1.3); GLUCOSE 153 mg/dL (74-106); POTASSIUM - SERUM 4.9 mmol/L (3.5-5.1); SODIUM 139 mmol/L (136-145); UREA NITROGEN 20 mg/dL (7-18); eGFR NON AFRICAN AMERICAN > 90 mL/min (90-120)
--- NOTE | 2021-02-14 08:17 | NUR ---
0700 BEDSIDE REPORT RECEIVED AWAKE ALERT IN BED HAVING NEBULIZER TREATMENT
[2021-02-14 08:43] VITALS: BP 168/59
[2021-02-14 13:01] VITALS: BP 153/64
[2021-02-14 17:34] VITALS: BP 150/67
[2021-02-14 20:00] VITALS: BP 155/78
[2021-02-15] VITALS: BP 164/70
[2021-02-15 04:00] VITALS: BP 120/69
[2021-02-15 06:59] LABS: BASOPHILS 0.1 % (0-2); EOSINOPHILS 0 % (0-7); HEMATOCRIT 39.9 % (42.0-54.0); HEMOGLOBIN 12.9 g/dL (13.5-17.5); LYMPHOCYTES 6.7 % (15-50); MCH 28.7 pg (26.0-34.0); MCHC 32.5 g/dL (31.0-37.0); MCV 88.5 fL (80.0-100.0); NEUTROPHILS 86.2 % (40-80); PLATELET COUNT 353 10x3/uL (130-400); RBC 4.51 10x6/uL (4.20-6.10); RDW 16.1 % (11.5-14.5); WBC 11.9 10x3/uL (4.8-10.8)
[2021-02-15 07:14] LABS: CALC OSMOLALITY 283 mosm/kg (275-300); CALCIUM 8.7 mg/dL (8.5-10.1); CARBON DIOXIDE 32.4 mmol/L (21.0-32.0); CHLORIDE - SERUM 102 mmol/L (98-107); CREATININE - SERUM 0.8 mg/dL (0.6-1.3); GLUCOSE 155 mg/dL (74-106); POTASSIUM - SERUM 4.8 mmol/L (3.5-5.1); SODIUM 139 mmol/L (136-145); UREA NITROGEN 21 mg/dL (7-18); eGFR NON AFRICAN AMERICAN > 90 mL/min (90-120)
[2021-02-15 08:56] VITALS: BP 174/75
--- NOTE | 2021-02-15 11:14 | NUR ---
PATIENT COMPLETELY INDEPENDENT, PULLED O2 TANK BY HIMSELF, WALKED 250 FEET WITH NO ISSUES. PT WILL SIGN OFF.
[2021-02-15 17:27] VITALS: BP 151/64
[2021-02-15 20:00] VITALS: BP 167/63
--- NOTE | 2021-02-15 23:00 | NUR ---
ASSESSED AT THE BEGINNING OF THE SHIFT. PT IS ALERT AND ORIENTED, ABLE TO VERBALIZE NEEDS. HE IS UP AD KAMERON TO THE BATHROOM AND HAS O2 ON AT 3 LITERS PER N/C. PLEASANT MOOD AND WATCHING TV. IV SITE PATENT AND INFUSING LEVAQUIN ORDERED AFTER WHICH HE WILL HAVE IT SALINE LOCKED.
--- NOTE | 2021-02-16 04:58 | NUR ---
HAS BEEN RESTING QUIET, WAS AWAKENED FOR EARLY RESP TX, LAB DRAWS AND VITAL SIGNS
[2021-02-16 06:46] LABS: BASOPHILS 0 % (0-2); EOSINOPHILS 0 % (0-7); HEMATOCRIT 40.3 % (42.0-54.0); HEMOGLOBIN 13.2 g/dL (13.5-17.5); LYMPHOCYTES 9.2 % (15-50); MCHC 32.8 g/dL (31.0-37.0); MCV 88.4 fL (80.0-100.0); MEAN PLATELET VOLUME 7.1 fL (7.4-10.4); MONOCYTES 8.3 % (2-11); NEUTROPHILS 82.5 % (40-80); PLATELET COUNT 350 10x3/uL (130-400); RBC 4.56 10x6/uL (4.20-6.10)
[2021-02-16 07:14] LABS: CALC OSMOLALITY 281 mosm/kg (275-300); CALCIUM 8.9 mg/dL (8.5-10.1); CARBON DIOXIDE 28.8 mmol/L (21.0-32.0); CHLORIDE - SERUM 99 mmol/L (98-107); CREATININE - SERUM 0.9 mg/dL (0.6-1.3); GLUCOSE 191 mg/dL (74-106); SODIUM 137 mmol/L (136-145); UREA NITROGEN 20 mg/dL (7-18); eGFR NON AFRICAN AMERICAN 88 mL/min (90-120)
--- NOTE | 2021-02-16 08:00 | NUR ---
PATIENT IN BED WITH IV INTACT. NO COMPLAINTS OR SIGNS OF DISTRESS. CALL LIGHT WITHIN REACH.
[2021-02-16 09:19] VITALS: BP 165/65
[2021-02-16 12:51] VITALS: BP 158/69
--- NOTE | 2021-02-16 13:00 | NUR ---
PATIENT SITTING UP IN BED WITH NO COMPLAINTS. IV INTACT. CALL LIGHT WITHIN REACH.
[2021-02-16 16:13] VITALS: BP 167/68
--- NOTE | 2021-02-16 18:38 | NUR ---
PATIENT STANDING UP IN ROOM MOVING AROUND. NO COMPLAINTS OR SIGNS OF DISTRESS. IV INTACT. CALL LIGHT WITHIN REACH.
--- NOTE | 2021-02-16 19:50 | NUR ---
PATIENT RESTING IN BED WITH NO S/S OF DISTRESS AND DENIES NEEDS AT THIS TIME. BED IN LOWEST POSITION AND CALL LIGHT IN REACH. ENCOURAGED PATIENT TO CALL WITH NEEDS.
[2021-02-16 20:00] VITALS: BP 139/61
--- NOTE | 2021-02-16 20:53 | NUR ---
REC'D CALL BACK FROM [facility] IN REGARDS TO VANC AND NOT BEING ENTERED IN THE PYXIS.
--- NOTE | 2021-02-16 21:10 | NUR ---
ADMINISTERED MEDS PER ORDERS. PATIENT NOEMI WELL. ENCOURAGED PATIENT TO CALL WITH NEEDS.
[2021-02-17 04:00] VITALS: BP 142/66
[2021-02-17 06:26] LABS: BASOPHILS 0.2 % (0-2); EOSINOPHILS 0.2 % (0-7); HEMATOCRIT 41.3 % (42.0-54.0); HEMOGLOBIN 13.2 g/dL (13.5-17.5); IMMATURE GRANULOCYTES 3.1 % (0-5); LYMPHOCYTE ABS# 1.84 10x3/uL (1.32-3.57); LYMPHOCYTES 14.4 % (15-50); MCH 28.8 pg (26.0-34.0); MCV 90.2 fL (80.0-100.0); MEAN PLATELET VOLUME 9.3 fL (7.4-10.4); MONOCYTES 15.1 % (2-11); NEUTROPHIL ABS# 8.59 10x3/uL (1.78-5.38); PLATELET COUNT 341 10x3/uL (130-400); RBC 4.58 10x6/uL (4.20-6.10); RDW 15.9 % (11.5-14.5)
[2021-02-17 06:27] LABS: WBC 12.8 10x3/uL (4.8-10.8)
[2021-02-17 06:45] LABS: CALCIUM 8.3 mg/dL (8.5-10.1); CHLORIDE - SERUM 102 mmol/L (98-107); POTASSIUM - SERUM 4.5 mmol/L (3.5-5.1); SODIUM 139 mmol/L (136-145); eGFR NON AFRICAN AMERICAN 78 mL/min (90-120)
[2021-02-17 06:51] LABS: CALC OSMOLALITY 285 mosm/kg (275-300); GLUCOSE 117 mg/dL (74-106); UREA NITROGEN 31 mg/dL (7-18)
--- NOTE | 2021-02-17 07:33 | NUR ---
PATIENT IN BED SITTING UP WITH IV INTACT. NO COMPLAINTS OR SIGNS OF DISTRESS AT THIS TIME. WILL CONTINUE TO MONITOR. CALL LIGHT WITHIN REACH.
[2021-02-17 08:08] LABS: IMMUNOGLOBULIN A 258 mg/dL (61-437); IMMUNOGLOBULIN G 972 mg/dL (603-1613)
[2021-02-17 09:08] LABS: CARBON DIOXIDE 31.5 mmol/L (21.0-32.0)
[2021-02-17] MEDS ORDERED: MUCINEX DM ER1 EAC1 PO (09:42)
[2021-02-17] MEDS ORDERED: FLORAJEN DIGES1 EACH PO (09:42)
[2021-02-17] MEDS ORDERED: PULMICORT0.5 MG/21 UPD (09:43)
[2021-02-17] MEDS ORDERED: DOXYCYCLINE HY100 M2 PO (09:43)
--- NOTE | 2021-02-17 10:13 | MORECARE ---
CASE MANAGEMENT DISCHARGE SUMMARY PATIENT: RIK TREVINO UNIT: [id number] ADM DATE: 02/11/21 AGE: 70 : 46 SEX: M ROOM/BED: D.2202 AUTHOR: GAGE SMITH PHYSICIAN: REFERRING PHYSICIAN: FRANKIE PARTIDA MD DATE OF SERVICE: 02/17/21 Case Management Discharge Planning Summary COMMENTS ENTERED DATE: 02/17/21 10:11 CT COMMENT TYPE: Discharge Planning REVIEWER: Hao Jorge CM met with patient to complete DC plan and to evaluate needs. Patient lives independently alone with strong support. Patient stated that his son, Joe Villatoro, is his person to notify and will give him a ride home today. Patient stated that his home is safe and has electricity and running water. Patient stated that he does not have mobility problems and he manages entry into his home without difficulty. Patient stated that he has no problems paying for medications and he fills his medications at [facility]. Patient stated that his primary care physician is Dr. Frankie Partida. At discharge, the patient plans to return home and feels this is a safe discharge. CM discussed availability of home health, rehab services, and medical equipment. Patient declined HHS, SNF, IPR, and DME. Patient stated that he has oxygen and oxygen supplies through [facility]. Patient voiced no other needs at this time and is satisfied with DC plan. DC IMM delivered, explained, signed by the patient, and placed in chart. Signed form also left with the patient. CM will continue to follow and will assist as needed with dc plans/needs. DCP REVIEW SUMMARY ANTICIPATED D/C DATE: 02/17/2021 EXPECTED LOS : 6 CASE STATUS: DCP Initiated INITIAL REVIEW: 02/11/2021 INITIAL REVIEWER: Hao Jorge FINAL DISCHARGE DISPOSITION: : FINAL REVIEWER: FINAL REVIEW DATE: DCP Focus Questions & Answers DCP Evaluation QUESTION: ANSWER Patient and/or caregiver agree upon recommended discharge plan? : Yes Patient's current cognitive status: : *Oriented to person, place, situation, time and present Patient's ability to cope with chronic illness : d. No chronic illness Patient gives permission to discuss discharge plans with: (name, relationship and number) : sonJeo, Family / Caregiver's ability to cope with chronic illness: : a. Adequate (ability to meet patient's medical needs, ensures patient attends medical appts.) Does the patient have the ability to pay for or attain post discharge needs / services? : Yes Functional screen assessment: : Basic needs can adequately be met by self Family / Caregiver's ability to cope with chronic illness: : a. Adequate (ability to meet patient's medical needs, ensures patient attends medical appts.) Physical Status: : Independent with ADL's Equipment needed for post hospitalization: : None Is there a likelihood that the patient will require additional services to return to the preadmission environment? : No Living Arrangements: : Home Alone with Support Patient with capacity for self-care or can be cared for in same environment as prior to hospitalization? : Yes Baseline cognitive status: : *Oriented to person, place, situation, time and present Physical environment modification needed / anticipated for discharge: : No Medication Management: : Patient states can afford medications Medication Management: : Patient states can read and understand medication labels Pharmacy name(s): : [facility] Does Patient have transportation to get home and to follow-up medical appointments when discharged from the hospital? : Yes Would patient like to participate in any Care Coordination programs (if applicable): : Not applicable Does the patient have electricity at home? : Yes Does the patient have running water in their house? : Yes Equipment in use: : Home Oxygen with Nasal Cannula Equipment agency name and contact information: : [facility] Mental health screen: : No mental health history DCP Re-evaluation QUESTION: ANSWER Would patient like to participate in any Care Coordination programs (if applicable): : Not applicable PATIENT: RIK TREVINO ENCOUNTER: [id number] MEDICAL RECORD#: [id number] ADMISSION DATE: 02/11/2021 DISCHARGE DATE: ATTENDING MD: FRANKIE CONNELLY : AGE: 70 MARITAL STATUS: M DC PLAN ID: [id number] FACILITY: [facility] PRINTED ON: 02/17/21 10:13 CT All edits/amendments must be made on the electronic document DICTATION DATE: 02/17/21 1013 VETERINARY PHARMACOLOGIST: JULIANO 02/17/21 1013 RPT#: [id number] DC DATE: STATUS: ADM IN [facility] [address] [place] [address] END OF REPORT
--- NOTE | 2021-02-17 10:36 | NUR ---
SPOKE W/PT RE PRESCRIPTIONS. HIS PHARMACY IS CLOSED TODAY BUT HE DOES NOT WANT THEM CALLED ELSEWHERE TO DIRECTOR OF CHILD WELFARE SERVICES TODAY. [facility] DID NOT GO THROUGH. CALLED [facility] AND LEFT MESSAGE WITH RX ON [facility]ICEMAIL.
--- NOTE | 2021-02-17 12:15 | NUR ---
PATIENT RECIEVED DC INSTRUCTIONS. VERBALIZED UNDERSTANDING. NO QUESTIONS AT THIS TIME. IV REMOVED WITH CATH TIP INTACT. EXPLAINED TO CODING COMPLIANCE MANAGER MEDS AT THE PHARMACY AND ALSO TO TURN PRESCRIPTION IN IF THAT MED IS NOT CALLED IN. ALFREDA MORENO LEFT A VOICEMAIL TO THE PHARMACY BUT PRESCRIPTION SENT JUST IN CASE PHARMACIST DOESNT RECIEVE IT. PATIENT WAITING FOR SON FOR TRANSPORTATION.
[2021-02-17 12:43] VITALS: BP 155/65
--- NOTE | 2021-02-17 12:45 | NUR ---
PATIENT ESCORTED DOWN TO PRIVATE VEHICLE WITH PERSONAL BELONGINGS VIA WC AT THIS TIME BY BERRY PICKER.
[2021-02-18 15:11] LABS: IGG SUBCLASS 1 508 mg/dL (248-810); IGG SUBCLASS 2 260 mg/dL (130-555); IGG SUBCLASS 3 83 mg/dL (15-102); IGG SUBCLASS 4 38 mg/dL (2-96); IGGS - IGG SERUM 935 mg/dL (603-1613)
--- NOTE | 2021-02-19 15:35 | MORECARE ---
CASE MANAGEMENT DISCHARGE SUMMARY PATIENT: RIK TREVINO UNIT: [id number] ADM DATE: 02/11/21 AGE: 70 : 46 SEX: M ROOM/BED: D.2202 AUTHOR: GAGE SMITH PHYSICIAN: REFERRING PHYSICIAN: FRANKIE PARTIDA MD DATE OF SERVICE: 02/19/21 Case Management Discharge Planning Summary COMMENTS ENTERED DATE: 02/17/21 10:11 CT COMMENT TYPE: Discharge Planning REVIEWER: Hao Jorge CM met with patient to complete DC plan and to evaluate needs. Patient lives independently alone with strong support. Patient stated that his son, Joe Villatoro, is his person to notify and will give him a ride home today. Patient stated that his home is safe and has electricity and running water. Patient stated that he does not have mobility problems and he manages entry into his home without difficulty. Patient stated that he has no problems paying for medications and he fills his medications at [facility]. Patient stated that his primary care physician is Dr. Frankie Partida. At discharge, the patient plans to return home and feels this is a safe discharge. CM discussed availability of home health, rehab services, and medical equipment. Patient declined HHS, SNF, IPR, and DME. Patient stated that he has oxygen and oxygen supplies through [facility]. Patient voiced no other needs at this time and is satisfied with DC plan. DC IMM delivered, explained, signed by the patient, and placed in chart. Signed form also left with the patient. CM will continue to follow and will assist as needed with dc plans/needs. DCP REVIEW SUMMARY ANTICIPATED D/C DATE: 02/17/2021 EXPECTED LOS : 6 CASE STATUS: DCP Initiated INITIAL REVIEW: 02/11/2021 INITIAL REVIEWER: Hao Jorge FINAL DISCHARGE DISPOSITION: : FINAL REVIEWER: FINAL REVIEW DATE: DCP Focus Questions & Answers DCP Evaluation QUESTION: ANSWER Patient gives permission to discuss discharge plans with: (name, relationship and number) : sonJoe, Patient's ability to cope with chronic illness : d. No chronic illness Patient's current cognitive status: : *Oriented to person, place, situation, time and present Family / Caregiver's ability to cope with chronic illness: : a. Adequate (ability to meet patient's medical needs, ensures patient attends medical appts.) Patient and/or caregiver agree upon recommended discharge plan? : Yes Physical Status: : Independent with ADL's Family / Caregiver's ability to cope with chronic illness: : a. Adequate (ability to meet patient's medical needs, ensures patient attends medical appts.) Functional screen assessment: : Basic needs can adequately be met by self Does the patient have the ability to pay for or attain post discharge needs / services? : Yes Living Arrangements: : Home Alone with Support Is there a likelihood that the patient will require additional services to return to the preadmission environment? : No Equipment needed for post hospitalization: : None Baseline cognitive status: : *Oriented to person, place, situation, time and present Patient with capacity for self-care or can be cared for in same environment as prior to hospitalization? : Yes Physical environment modification needed / anticipated for discharge: : No Medication Management: : Patient states can afford medications Medication Management: : Patient states can read and understand medication labels Pharmacy name(s): : [facility] Does Patient have transportation to get home and to follow-up medical appointments when discharged from the hospital? : Yes Would patient like to participate in any Care Coordination programs (if applicable): : Not applicable Does the patient have electricity at home? : Yes Does the patient have running water in their house? : Yes Equipment in use: : Home Oxygen with Nasal Cannula Equipment agency name and contact information: : [facility] Mental health screen: : No mental health history DCP Re-evaluation QUESTION: ANSWER Would patient like to participate in any Care Coordination programs (if applicable): : Not applicable PATIENT: RIK TREVINO ENCOUNTER: [id number] MEDICAL RECORD#: [id number] ADMISSION DATE: 02/11/2021 DISCHARGE DATE: 02/17/2021 ATTENDING MD: FRANKIE CONNELLY : 1950-Peter AGE: 70 MARITAL STATUS: M DC PLAN ID: [id number] FACILITY: [facility] PRINTED ON: 02/19/21 15:35 CT All edits/amendments must be made on the electronic document DICTATION DATE: 02/19/214 FLAME GOUGER: JULIANO 02/19/21 1534 RPT#: [id number] DC DATE:02/17/21 STATUS: DIS IN [facility] [address] [place] [address] END OF REPORT
== END 2021-02-17 12:45 | disposition home or self-care (01) | DRG 189 ==
LOC: D.ER 19:07 → D.MS 21:56 → D.EDHOLD 21:56 → D.MS 22:29
PROVIDERS: Emergency Medicine; Internal Medicine Pulmonary Disease; ADMIT Family Medicine; ATTEND Family Medicine
DX: J96.21 Acute and chronic respiratory failure with hypoxia (principal); J44.0 Chronic obstructive pulmonary disease with (acute) lower respiratory infection; J44.1 Chronic obstructive pulmonary disease with (acute) exacerbation; J20.9 Acute bronchitis, unspecified; F17.200 Nicotine dependence, unspecified, uncomplicated; I25.10 Atherosclerotic heart disease of native coronary artery without angina pectoris; I10 Essential (primary) hypertension; E78.5 Hyperlipidemia, unspecified; M19.90 Unspecified osteoarthritis, unspecified site; M81.0 Age-related osteoporosis without current pathological fracture; Z87.01 Personal history of pneumonia (recurrent); B95.62 Methicillin resistant Staphylococcus aureus infection as the cause of diseases classified elsewhere